=== PATIENT | male | born 1970 | race Caucasian/White ===

== ENCOUNTER 2019-01-18 23:38 | Emergency (ER) | payer OTHER ==
[~2019-01-18] VITALS: Ht 177.8 cm; Wt 95.3 kg
--- NOTE | 2019-01-18 23:49 | NUR ---
PT BIB , LOWER BACK PUNCTURE, S/P TRIP N FALL. PT AAOX4, AMBULATORY, PT ON MONITOR, VSS, NAD NOTED, DENIES PAIN/DISCOMFORT, PENDING ER PROVIDER SHAUNA
[2019-01-19] MEDS ORDERED: LIDOCAINE HCL/MPF 1% 30 ML VIAL IJ ONE (00:17)
[2019-01-19 00:30] LABS: BASOPHILS # (AUTO) 0.1 /CMM (0.0-0.2); BASOPHILS % (AUTO) 1.4 % (0.0-2.0); EOSINOPHILS % (AUTO) 2.1 % (0.0-6.0); HEMATOCRIT 38 % (39-51); HEMOGLOBIN 13.1 g/dL (13.5-17.5); LYMPHOCYTES # (AUTO) 1.9 /CMM (0.8-4.8); LYMPHOCYTES % (AUTO) 18.5 % (20.0-44.0); MEAN CORPUSCULAR HGB CONC 34 g/dl (31.0-36.0); MEAN CORPUSCULAR VOLUME 107 fL (80-96); MONOCYTES # (AUTO) 0.4 /CMM (0.1-1.30); MONOCYTES % (AUTO) 4.2 % (2.0-12.0); NEUTROPHILS # (AUTO) 7.7 /CMM (1.8-8.9); NEUTROPHILS % (AUTO) 73.8 % (43.0-81.0); PLATELET COUNT (AUTO) 265 /CMM (150-450); RED BLOOD CELL COUNT(AUTO) 3.56 MIL/uL (4.5-6.0); WHITE BLOOD COUNT (AUTO) 10.4 K/uL (4.3-11.0)
[2019-01-19] MEDS ORDERED: TDAP [DIPH/PERTUSSIS/TET] 0.5 ML VIAL IM ONE ×2 (00:30→01:08)
[2019-01-19] MEDS ORDERED: IV NS 0.9% 1,000 ML BAG IV ONE (00:30)
[2019-01-19] MEDS ORDERED: LIDOCAINE 2% 20 ML MDV TP ONE (00:30)
[2019-01-19] MEDS ORDERED: LIDOCAINE 2%-EPI 1:100,000 30 ML VIAL TP ONE (00:30)
[2019-01-19] MEDS ORDERED: CT SWABBABLE VALVE TRANS SET 1 EA INFUS.SET MC ONE (00:37)
[2019-01-19] MEDS ORDERED: IOHEXOL-300 100 ML VIAL IV ONE (00:37)
[2019-01-19] MEDS ORDERED: IV NS 0.9% 250 ML IV ONE (00:37)
[2019-01-19 00:53] LABS: CALCIUM, SERUM 8.2 mg/dL (8.5-10.1); CREATININE 0.6 mg/dL (0.6-1.3); POTASSIUM 3.7 mmol/L (3.5-5.1)
[2019-01-19 00:56] LABS: ALBUMIN 3.2 g/dL (3.4-5.0); BILIRUBIN,DIRECT 0.2 mg/dL (0.0-0.2); BILIRUBIN,TOTAL 0.4 mg/dL (0.2-1.0); TOTAL PROTEIN, SERUM 7.7 g/dL (6.4-8.2)
--- NOTE | 2019-01-19 00:58 | NUR ---
PT REFUSED CHEST XRAY. AWARE.
[2019-01-19 01:16] LABS: BASOPHILS % (MANUAL) 1 % (0.0-2.0); EOSINOPHILS % (MANUAL) 2 % (0-4); LYMPHOCYTES % (MANUAL) 18 % (16-48); MONOCYTES % (MANUAL) 5 % (0-11.0); NEUTROPHILS % (MANUAL) 74 (42-76)
--- NOTE | 2019-01-19 01:29 | NUR ---
CALLED NIC TO READ IMAGES
[2019-01-19 02:09] VITALS: BP 151/69
--- NOTE | 2019-01-19 02:09 | NUR ---
Patient discharged to home in stable condition. Written and verbal after care instructions given. Patient verbalizes understanding of instruction. IV removed. Catheter intact and site benign. Pressure and 4x4 applied to site. No bleeding noted.
== END 2019-01-19 02:10 | disposition home or self-care (01) ==
LOC: ER 23:43
DX: S31.010A Laceration without foreign body of lower back and pelvis without penetration into retroperitoneum, initial encounter (principal); R42 Dizziness and giddiness; F17.210 Nicotine dependence, cigarettes, uncomplicated; F10.10 Alcohol abuse, uncomplicated; Y90.9 Presence of alcohol in blood, level not specified; W22.8XXA Striking against or struck by other objects, initial encounter; Y93.89 Activity, other specified; Y92.89 Other specified places as the place of occurrence of the external cause; Y99.8 Other external cause status
CPT/HCPCS: 12001; 36415; 72131; 74177; 80048; 80076; 85025; 85730; 86850; 90471; 90715; 93005; 96360; 99284; J3490; J7050; Q9967

== ENCOUNTER 2022-01-12 02:55 | Inpatient (IN) | payer OTHER ==
[~2022-01-12] VITALS: Ht 177.8 cm; Wt 84.8 kg
[2022-01-12] VITALS (8 sets, daily range): BP systolic 85–116; BP diastolic 45–60
--- NOTE | 2022-01-12 03:15 | NUR ---
TO ER BED 6. [id number] FROM HOME C/O SOB AND WEAKNESS X 2 DAYS AND WORSE TONIGHT. DID NOT TAKE ANYTHING TO RELIEVE SYMPTOMS. O2 SAT NOTED AT 98 ROOM AIR . NOT IN RESPIRATORY DISTRESS. CONNECTED TO MONITOR. AWAITNG MD VILLATORO
--- NOTE | 2022-01-12 03:16 | NUR ---
RFA #20G S/L; PATENT AND INTACT. BLOOD COLLECTED AND SENT TO LAB
--- NOTE | 2022-01-12 03:20 | NUR ---
COVID ANTIGEN SWAB COLLECTED AND SENT TO LAB
--- NOTE | 2022-01-12 03:20 | NUR ---
CRYPTOGRAPHIC MACHINE OPERATOR AT PT'S BEDSIDE
[2022-01-12 03:30] LABS: BASOPHILS # (AUTO) 0.1 K/uL (0.0-0.2); BASOPHILS % (AUTO) 0.3 % (0.0-2.0); EOSINOPHILS % (AUTO) 0.3 % (0.0-6.0); HEMATOCRIT 21 % (39-51); HEMOGLOBIN 7.3 g/dL (13.5-17.5); LYMPHOCYTES # (AUTO) 1.4 K/uL (0.8-4.8); LYMPHOCYTES % (AUTO) 4.7 % (20.0-44.0); MEAN CORPUSCULAR HGB CONC 34 g/dl (31.0-36.0); MEAN CORPUSCULAR VOLUME 105 fL (80-96); MONOCYTES # (AUTO) 1.4 K/uL (0.1-1.30); NEUTROPHILS # (AUTO) 26.1 K/uL (1.8-8.9); NEUTROPHILS % (AUTO) 89.7 % (43.0-81.0); PLATELET COUNT (AUTO) 291 K/uL (150-450); RED BLOOD CELL COUNT(AUTO) 2.04 MIL/uL (4.5-6.0)
[2022-01-12 03:51] LABS: ALANINE AMINOTRANSFERASE < 6 U/L (12-78); ALKALINE PHOSPHATASE 150 U/L (46-116); ASPARTATE AMINOTRANSFERASE 17 U/L (15-37); BILIRUBIN,DIRECT 1.3 mg/dL (0.0-0.2); BILIRUBIN,TOTAL 1.7 mg/dL (0.2-1.0); CALCIUM, SERUM 8.2 mg/dL (8.5-10.1); CARBON DIOXIDE 15 mmol/L (21-32); CREATININE 3.5 mg/dL (0.6-1.3); GLUCOSE 89 mg/dL (74-106); POTASSIUM 3.2 mmol/L (3.5-5.1); TOTAL PROTEIN, SERUM 6.8 g/dL (6.4-8.2); UREA NITROGEN, BLOOD 44 mg/dL (7-18)
[2022-01-12 03:53] LABS: CHLORIDE 75 mmol/L (98-107); SODIUM SERUM 111 mmol/L (136-145)
--- NOTE | 2022-01-12 03:54 | NUR ---
CRITICAL LABS SODIUM 111, CHLORIDE 75, LACTIC ACID 9.4, MADE AWARE
[2022-01-12] MEDS ORDERED: AZITHROMYCIN 500 MG in IV D5W 250 ML IV ONE (04:30)
[2022-01-12] MEDS ORDERED: IV NS 0.9% 1,000 ML BAG IV ONE (04:30)
[2022-01-12] MEDS ORDERED: CEFTRIAXONE 1GM BAG (ER ONLY) 1 GM/50 ML PIGGYBACK IV ONE (04:30)
[2022-01-12] MEDS ORDERED: ALBUMIN 25% 12.5 GM/50 ML BOTTLE IV ONE (04:30)
[2022-01-12] MEDS ORDERED: CEFTRIAXONE 1GM BAG (ER ONLY) 50 ML IV ONE (04:34)
[2022-01-12] MEDS ORDERED: ALBUMIN 25% 50 ML IV ONE (04:35)
[2022-01-12] MEDS ORDERED: AZITHROMYCIN 500 MG VIAL ONE (04:35)
--- NOTE | 2022-01-12 04:57 | NUR ---
COVID PCR AND BLOOD COLLECTED AND SENT TO LAB
--- NOTE | 2022-01-12 05:19 | NUR ---
URINE COLLECTED AND SENT TO LAB
[2022-01-12 05:48] LABS: BILIRUBIN,URINE SMALL (NEGATIVE); COLOR,URINE DARK YELLOW (YELLOW); LEUKOCYTE ESTERASE ,URINE NEGATIVE (NEGATIVE); NITRITE, URINE NEGATIVE (NEGATIVE); PROTEIN,URINE NEGATIVE (NEGATIVE); UGLUCOSE NEGATIVE (NEGATIVE); UROBILINOGEN,URINE 0.2 EU/dL (0.2)
[2022-01-12] MEDS ORDERED: ONDANSETRON HCL/PF 4 MG/2 ML VIAL IVP PRN (06:30)
[2022-01-12] MEDS ORDERED: IV NS 0.9% 1,000 ML IV PRN (06:30)
--- NOTE | 2022-01-12 07:15 | NUR ---
Recived pt from [facility] RN AWAKE AND ALERT coughing congestion and tachypnea RR 32b/min HOB 45@ ALL TIME wating for telmetery bed
[2022-01-12 07:26] LABS: BAND % (MANUAL) 9 % (0.0-5.0); LYMPHOCYTES % (MANUAL) 3 % (16-48); MONOCYTES % (MANUAL) 6 % (0-11.0); NEUTROPHILS % (MANUAL) 82 (42-76)
--- NOTE | 2022-01-12 08:06 | NUR ---
AMBLATE TO BR HAD BM X1 AFEBRILE
--- NOTE | 2022-01-12 08:29 | NUR ---
ECCHO CARDOGRM AT BED SIDE
--- NOTE | 2022-01-12 09:03 | NUR ---
notefy DR. HUFF plan to called [facility] pcp
[2022-01-12 09:49] LABS: ABG BASE EXCESS -6.3 mmol/L; ABG PCO2 25.2 mmHg (35.0-45.0); ABG PH 7.445 (7.350-7.450); ABG PO2 55.5 mmHg (75.0-100.0); COHb 0.3 % (0.5-1.5); MetHb 0.3 % (0.0-1.5); O2Hb 87.6 % (94.0-97.0); SITE, ABG Right Radial; VENT MODE, BG ROO AIR
--- NOTE | 2022-01-12 10:00 | NUR ---
[facility] unable to reash with
--- NOTE | 2022-01-12 10:16 | NUR ---
room 110
[2022-01-12] MEDS: FOLIC ACID 1 MG TABLET PO SCH (10:30)
--- NOTE | 2022-01-12 10:31 | NUR ---
REPORT GIVEN TO ARVIN KING OF TELE UNIT
--- NOTE | 2022-01-12 10:34 | NUR ---
sitll with sob with exertion o2 sat 99% with fio2 2lnc to room 110
--- NOTE | 2022-01-12 10:45 | NUR ---
PATIENT TRANSFERRED TO BED 110 IN STABLE CONDITION
[2022-01-12] MEDS: VANCOMYCIN HCL 0.75 GM in IV D5W 250 ML IV SCH (11:20)
--- NOTE | 2022-01-12 11:30 | NUR ---
RN NOTE PT RECD FROM ER. REPORT TAKEN FROM NURSE SALOMÓN. PT IS A/0 X 3-4. PT SOB AND IN DISTRESS ON 6L VIA NC UPON RECEIPT OF PT O2 SAT OF 90%. . O2 INCREASED TO 12L VIA REBREATHER MASK AND PT TOLERATING WELL WITH 02SAT OF 98%. PT HAS 20G R WRIST IV AND 22G L FA INTACT AND PATENT. PT BREATHING EVEN AND LABORED UPON ASSESSMENT. PT HAS CRITICAL LAB VALUES OF 111(NA) 3.2(K+) PER ER NURSE. ABG CRITICAL LABS OF 7.7(HGB) 25.2(CO2) AND 55.5(O2) PER ER NURSE. MD NOTIFIED. ALL SAFETY MEASURES NOTED AND ACCOUNTED FOR. BED IN LOW POSITION. WHEELS LOCKED IN PLACE. CALL LIGHT WITHIN REACH. WILL CONTINUE TO MONITOR.
[2022-01-12] MEDS ORDERED: IV NS 0.9% 1,000 ML IV ONE ×3 (12:00→17:30)
[2022-01-12] MEDS: HYDROCODONE/APAP 5/325MG TABLET PO PRN (13:09)
[2022-01-12] MEDS: LEVOFLOXACIN 750 MG /D5W 150ML 150 ML IV SCH (13:44)
[2022-01-12] MEDS: CEFEPIME 2 GM in IV D5W 100 ML IV SCH (13:44)
[2022-01-12 14:49] LABS: CALCIUM, SERUM 7.6 mg/dL (8.5-10.1); CREATININE 3.2 mg/dL (0.6-1.3)
--- NOTE | 2022-01-12 15:00 | NUR ---
RN NOTE PT REVEIVED LRBC BLOOD TRANSFUSION 500 ML OVER 3 HOURS. PT TOLERATED WELL WITH NO S/SX OF TRANSFUSION REACTION AND STABLE V/S UPON FINISHING TRANSFUSION. V/S WERE 107/52 80HR 20RR AND 97.5 TEMP. WILL CONTINUE TO MONITOR.
--- NOTE | 2022-01-12 15:18 | NUR ---
NA 114 AND K LEVER 3.0 notified to stated that consult to Sr Perez [phone] informed to MD he will see him today
[2022-01-12] MEDS: PANTOPRAZOLE 40 MG TABLET.DR PO SCH (16:00)
[2022-01-12] MEDS: ENOXAPARIN SODIUM 30 MG/0.3 ML DISP.SYRIN SQ SCH (16:02)
[2022-01-12 17:09] LABS: ABG BASE EXCESS -7.2 mmol/L; ABG OXYGEN SATURATION 96.8 % (92.0-98.5); ABG PCO2 30.1 mmHg (35.0-45.0); ABG PH 7.373 (7.350-7.450); ABG PO2 90.2 mmHg (75.0-100.0); AaDO2 160.4 mmHg; MetHb 0.1 % (0.0-1.5); O2Hb 95.7 % (94.0-97.0); SITE, ABG Right Radial; VENT MODE, BG 6L NC
[2022-01-12] MEDS: IV NS 0.9% 1,000 ML IV PRN ×2 (17:10→22:30)
--- NOTE | 2022-01-12 18:01 | NUR ---
RN NOTE PT BP 85/55. 1L NS BOLUS ORDERED AND ADM PER MD. BOLUS FINISHED AND BP IS CURRENTLY 95/57. TRANSFER TO ICU PER MD IF SYSTOLIC <80. WILL CONTINUE TO MONITOR.
--- NOTE | 2022-01-12 18:36 | NUR ---
RN CLOSING NOTE PT REMAINS STABLE AT THIS TIME. PT IS A/0 X 3-4. PT PT BREATHING IS EVEN AND UNLABORED ON 6L NC AND TOLERATING WELL WITH 02SAT OF 99%. PT HAS 20G R WRIST IV AND 22G L FA INTACT AND PATENT RUNNING NS AT 125 ML/HR. PT RECEIVED 2L NS VIA BOLUS PER MD ORDER FOR LOW BP. BP CURRENTLY AT 94/42. ALL DUE MEDS ADM ORDERED BY MD. ALL NEEDS MET. ALL SAFETY MEASURES NOTED AND ACCOUNTED FOR. BED IN LOW POSITION. WHEELS LOCKED IN PLACE. CALL LIGHT WITHIN REACH. WILL ENDORSE TO LENS ASSISTANT RN.
--- NOTE | 2022-01-12 19:30 | NUR ---
RN NOTES RECEIVED PT FOR CONTINUITY OF CARE. PATIENT A/OX4 IN NO S/SX OF ACUTE DISTRESS AT THIS TIME; CURRENTLY ON 6L OF 02 VIA NC; WITH 02 SAT 100% AT THIS TIME. IV SITE @ L ARM#20 AND R WRIST #20 ; PATENT, INTACT AND FLUSHING WELL; NO S/S OF INFECTION OR INFILTRATION. PT ALSO HAS ALL SECURED AND INTACT NO SIGNS OF INFECTION. WITH IV FLUID RUNNING ORDERED. WILL ENSURE SAFETY MEASURES WITHIN THE SHIFT. PATIENT BED ALARM IS ON. HEAD OF BED ELEVATED. BED IS LOCKED, IN LOWEST POSITION AND SIDE RAILS UP. CALL LIGHT WITHIN REACH OF THE PATIENT. APPLICABLE ISOLATION PRECAUTIONS IN PLACE. WILL CONTINUE TO MONITOR AND REASSESS FOR ANY CHANGES AND WILL CARRY OUT ANY ONGOING AND ACTIVE MD ORDER.
[2022-01-12] MEDS: ACETAMINOPHEN 325 MG TABLET PO PRN (20:05)
[2022-01-12] MEDS: MORPHINE SULFATE INJ 2 MG/ML DISP.SYRIN IV PRN (22:43)
[2022-01-13] VITALS: BP 100/56
[2022-01-13 04:00] VITALS: BP 105/53
[2022-01-13] MEDS: ACETAMINOPHEN 325 MG TABLET PO PRN ×3 (05:36→22:46)
[2022-01-13] MEDS: IV NS 0.9% 1,000 ML IV PRN (06:30)
--- NOTE | 2022-01-13 06:40 | NUR ---
RN CLOSING NOTE: PATIENT REMAINS IN ROOM IN NO SIGNS OF RESPIRATORY DISTRESS, PATIENT STILL ON 4L OF 02 VIA NC;TOLERATING WELL SATURATING @ >95% SP02. SAFETY MEASURES IMPLEMENTED, BED IN LOWEST POSITION, LOCKED, SIDE RAILS UP, CALL LIGHT WITHIN REACH. ALL NEEDS AND ORDERS ADDRESSED DURING THE SHIFT. IV ACCESS MAINTAINED INTACT, SECURED AND FLUSHING WELL. ALL DUE MEDS GIVEN ORDERED & SCHEDULED ; PATIENT TOLERATED WELL. PATIENT KEPT CLEAN AND COMFORTABLE WITHIN THE SHIFT. PATIENT ENDORSED TO INCOMING SHIFT RN WITH STABLE VITAL SIGN AND FOR CONTINUITY OF CARE. Addendum: 01/13/22 at 0659 by ZAYRA JURADO RN MEÑO CRITICAL LAB RECEIVED : NA LEVEL -117; WILL ENDORSE TO AM SHIFT FOR FOLLOW THROUGH WITH MD. CUELLO RN MADE AWARE.
[2022-01-13 06:44] LABS: CALCIUM, SERUM 7.5 mg/dL (8.5-10.1); CREATININE 1.9 mg/dL (0.6-1.3); PHOSPHORUS 4.1 mg/dL (2.5-4.9); POTASSIUM 3.4 mmol/L (3.5-5.1)
[2022-01-13 06:49] LABS: BASOPHILS # (AUTO) 0.1 K/uL (0.0-0.2); BASOPHILS % (AUTO) 0.3 % (0.0-2.0); HEMATOCRIT 24 % (39-51); HEMOGLOBIN 8.2 g/dL (13.5-17.5); LYMPHOCYTES # (AUTO) 0.8 K/uL (0.8-4.8); LYMPHOCYTES % (AUTO) 4.3 % (20.0-44.0); MAGNESIUM 1.2 mg/dL (1.8-2.4); MEAN CORPUSCULAR HGB CONC 34 g/dl (31.0-36.0); MEAN CORPUSCULAR VOLUME 103 fL (80-96); MONOCYTES # (AUTO) 0.8 K/uL (0.1-1.30); MONOCYTES % (AUTO) 4.4 % (2.0-12.0); NEUTROPHILS # (AUTO) 16.5 K/uL (1.8-8.9); PLATELET COUNT (AUTO) 187 K/uL (150-450); RED BLOOD CELL COUNT(AUTO) 2.33 MIL/uL (4.5-6.0); WHITE BLOOD COUNT (AUTO) 18.1 K/uL (4.3-11.0)
--- NOTE | 2022-01-13 06:56 | NUR ---
RN NOTES CRITICAL LAB RECEIVED : NA LEVEL -117; WILL ENDORSE TO AM SHIFT FOR FOLLOW THROUGH WITH MD. CUSTOMER EXPERIENCE ANALYST MADE AWARE.
--- NOTE | 2022-01-13 07:30 | NUR ---
YARN INSPECTOR OPENING NOTES RECEIVED PATIENT AWAKE ON BED AND A/O X4. ON O2 AT 4LPM VIA NASAL CANNULA TOLERATING WELL. NOT IN DISTRESS. WITH COMPLAINTS OF PAIN ON THE LEFT SHOULDER AT THE SCALE OF 9/10 AND ASKED FOR MORPHINE FOR PAIN MEDICATION. CHECKED PATIENT'S BP BUT BP WAS 98/53. MORPHINE PAIN MEDICATION CANNOT BE GIVEN. WILL RECHECK BP. WITH IV ACCESS AT LEFT ARM G20 SALINE LOCKED, PATENT AND INTACT AND AT RIGHT WRIST G20 WITH NS AT 125ML/HR INFUSING WELL. ON TELE MONITOR CURRENTLY READING SINUS RHYTHM AT 76BPM. SAFETY MEASURES IN PLACED. CALL LIGHT WITHIN REACH. BED ON LOWEST LOCKED POSITION, SIDE RAILS UP X2. WILL CONTINUE TO MONITOR.
[2022-01-13 08:00] VITALS: BP 111/44
[2022-01-13] MEDS ORDERED: MAGNESIUM OXIDE 400 MG TABLET PO ONE (08:00)
[2022-01-13] MEDS ORDERED: POTASSIUM CHLORIDE 10 MEQ TABLET.SA PO ONE (08:00)
[2022-01-13] MEDS: PANTOPRAZOLE 40 MG TABLET.DR PO SCH (08:52)
[2022-01-13] MEDS: Potassium Chloride 20 MEQ in IV NS 0.9% 1,000 ML IV SCH ×2 (08:52→16:19)
[2022-01-13] MEDS: CEFEPIME 2 GM in IV D5W 100 ML IV SCH (08:52)
[2022-01-13] MEDS: FOLIC ACID 1 MG TABLET PO SCH (08:52)
[2022-01-13] MEDS: ENOXAPARIN SODIUM 30 MG/0.3 ML DISP.SYRIN SQ SCH (08:53)
[2022-01-13] MEDS ORDERED: FLUT12AE5 INH (09:56)
[2022-01-13] MEDS ORDERED: PANT40TA49 PO (09:56)
[2022-01-13] MEDS ORDERED: ALBU18HF2 IH (09:56)
[2022-01-13] MEDS ORDERED: SPIR25TA6 PO (09:56)
[2022-01-13] MEDS ORDERED: PROP10TA68 PO (09:56)
[2022-01-13] MEDS: VANCOMYCIN HCL 0.75 GM in IV D5W 250 ML IV SCH ×2 (10:48→22:00)
[2022-01-13 11:25] LABS: IRON, SERUM 36 ug/dl (50-175); TOTAL IRON BINDING CAPACITY 114 ug/dl (250-450)
[2022-01-13 11:30] LABS: FERRITIN 576 ng/mL (8-388)
[2022-01-13 12:49] VITALS: BP 100/40
[2022-01-13 14:19] LABS: POTASSIUM 2.7 mmol/L (3.5-5.1)
--- NOTE | 2022-01-13 15:00 | NUR ---
RN NOTE REPORTED TO DR. LILLY FOR POTASSIUM RESULT 2.7 AND ORDERED KCL 20MEQ PO FOR 3 DOSES.
[2022-01-13 16:00] VITALS: BP 105/54
[2022-01-13] MEDS: POTASSIUM CHLORIDE 20 MEQ TAB.PRT.SR PO SCH ×4 (17:40→21:58)
--- NOTE | 2022-01-13 18:42 | NUR ---
TABLE AND DESK FINISHER CLOSING NOTES PATIENT RESTING ON BED AND A/O X4. ON O2 AT 4LPM VIA NASAL CANNULA TOLERATING WELL. NOT IN DISTRESS. WITH COMPLAINTS OF PAIN ON THE LEFT SHOULDER. COMFORT MEASURES PROVIDED. WITH IV ACCESS AT LEFT ARM G20 SALINE LOCKED, PATENT AND INTACT AND AT RIGHT WRIST G20 WITH NS +KCL 20MEQ AT 125ML/HR INFUSING WELL. ON TELE MONITOR CURRENTLY READING SINUS RHYTHM AT 73BPM. DUE MEDS GIVEN. SAFETY MEASURES IN PLACED. CALL LIGHT WITHIN REACH. BED ON LOWEST LOCKED POSITION, SIDE RAILS UP X2. WILL ENDORSE TO NEXT SHIFT FOR VALERIA.
--- NOTE | 2022-01-13 19:40 | NUR ---
RN OPENING NOTES RECEIVED PATIENT IN BED, AWAKE, A/O X4 AND VERBALLY RESPONSIVE. ON O2 AT 4LPM VIA N/C AND TOLERATING WELL. BREATHING EVEN AND UNLABORED. IV ACCESS ON LEFT ARM #20G AND RIGHT WRIST #20G INTACT AND PATENT. NO S/S OF INFILTRATIONS. RUNNING NS AT 125CC/HR. TYLENOL GIVEN DURING LAST SHIFT FOR PAIN BUT STILL DIDN'T RESOLVE. MORPHINE WAS NOT GIVEN DUE TO LOW BP. ALL SAFETY MEASURES IN PLACED. PLACE CALL LIGHT WITHIN REACH. BED ON LOWEST POSITION AND LOCKED. SIDE RAILS UP X2. WILL CONTINUE TO MONITOR.
[2022-01-13 20:00] VITALS: BP 106/44
--- NOTE | 2022-01-13 22:58 | NUR ---
RN NOTES: PT C/O BOTH KNEE PAIN, 3/10 PAIN SCALE. TYLENOL 650 MG 2 TABS GIVEN AND PT TOLERATED WELL. WILL CONTINUE TO MONITOR
[2022-01-14] VITALS (7 sets, daily range): BP systolic 91–123; BP diastolic 49–75
[2022-01-14] MEDS: Potassium Chloride 20 MEQ in IV NS 0.9% 1,000 ML IV SCH ×3 (00:35→21:49)
[2022-01-14] MEDS: ACETAMINOPHEN 325 MG TABLET PO PRN ×2 (04:52→16:30)
--- NOTE | 2022-01-14 04:54 | NUR ---
RN NOTES: PT STILL C/O BOTH KNEE PAIN, 3/10 PAIN SCALE. TYLENOL 650 MG 2 TABS GIVEN AND PT TOLERATED WELL. WILL CONTINUE TO MONITOR
[2022-01-14 06:27] LABS: BASOPHILS % (AUTO) 0.1 % (0.0-2.0); EOSINOPHILS % (AUTO) 0.2 % (0.0-6.0); HEMATOCRIT 21 % (39-51); LYMPHOCYTES # (AUTO) 1.5 K/uL (0.8-4.8); LYMPHOCYTES % (AUTO) 8.5 % (20.0-44.0); MEAN CORPUSCULAR HGB CONC 34 g/dl (31.0-36.0); MEAN CORPUSCULAR VOLUME 102 fL (80-96); MONOCYTES % (AUTO) 5.9 % (2.0-12.0); NEUTROPHILS # (AUTO) 14.9 K/uL (1.8-8.9); NEUTROPHILS % (AUTO) 85.3 % (43.0-81.0); PLATELET COUNT (AUTO) 176 K/uL (150-450); RED BLOOD CELL COUNT(AUTO) 2.01 MIL/uL (4.5-6.0); WHITE BLOOD COUNT (AUTO) 17.4 K/uL (4.3-11.0)
--- NOTE | 2022-01-14 06:47 | NUR ---
RN CLOSING NOTES PATIENT IN BED, AWAKE, A/O X4 AND VERBALLY RESPONSIVE. ON O2 AT 4LPM VIA N/C, O2 SAT 99% AND TOLERATING WELL. BREATHING EVEN AND UNLABORED. IV ACCESS ON LEFT ARM #20G AND RIGHT WRIST #20G INTACT AND PATENT. NO S/S OF INFILTRATIONS. RUNNING NS WITH POTASSIUM AT 125CC/HR. PT STILL C/O PAIN BUT TYLENOL GIVEN AT 0452. UNABLE TO GIVEN MORPHINE DUE TO LOW BP. ALL SAFETY MEASURES IN PLACED. PLACE CALL LIGHT WITHIN REACH. BED ON LOWEST POSITION AND LOCKED. SIDE RAILS UP X2. WILL ENDORSE TO MORNING SHIFT NURSE.
[2022-01-14 07:10] LABS: CALCIUM, SERUM 8.1 mg/dL (8.5-10.1); POTASSIUM 4.3 mmol/L (3.5-5.1)
[2022-01-14 07:19] LABS: MAGNESIUM 1.2 mg/dL (1.8-2.4)
--- NOTE | 2022-01-14 07:30 | NUR ---
TD RN AM NOTES PATIENT AWAKE IN BED AND A/O X4. ON O2 AT 4LPM VIA NASAL CANNULA O2 SAT AT 100%. NOT IN DISTRESS. SLIGHT SOB ON MOVEMENT. DENEIS CHEST PAIN/DISCOMFORT, SR HR 61 ON MONITOR. LEFT ARM 20G AND RT WRIST 20G WITH NS +MEQ KCL RUNNING AT 125 ML/HR. BOTH SITES CLEAR. CARDIAC DIET. SEE NURSING FLOWSHEET FOR SKIN ISSUES. INDEPENDENT OF BED MOBILITY. IN MEDICATION CANNOT BE GIVEN. WILL RECHECK BP. WITH IV ACCESS AT LEFT ARM G20 SALINE LOCKED, PATENT AND POC DISCUSSED, VERBALIZED UNDERSTANDING. SAFETY MEASURES IN PLACED. CALL LIGHT WITHIN REACH. BED ON LOWEST LOCKED POSITION, SIDE RAILS UP X2. WILL CONTINUE TO MONITOR.
[2022-01-14] MEDS: CEFEPIME 2 GM in IV D5W 100 ML IV SCH (08:07)
[2022-01-14] MEDS: PANTOPRAZOLE 40 MG TABLET.DR PO SCH (08:07)
[2022-01-14] MEDS: FOLIC ACID 1 MG TABLET PO SCH (08:10)
[2022-01-14] MEDS: ENOXAPARIN SODIUM 30 MG/0.3 ML DISP.SYRIN SQ SCH (08:20)
[2022-01-14] MEDS: VANCOMYCIN HCL 0.75 GM in IV D5W 250 ML IV SCH (09:21)
[2022-01-14] MEDS: Magnesium 1GM/D5W 100ML PREMIX 100 ML IV SCH ×2 (09:22→10:26)
--- NOTE | 2022-01-14 09:30 | NUR ---
RN NOTES DUE MEDS GIVEN
--- NOTE | 2022-01-14 09:40 | NUR ---
RN NOTES PER DR. SINGH, PATIENT FOR CT CHEST WO AND POSSIBLE CT GUIDED PIGTAIL PLACEMENT - LUNG POSS HYDROPNEUMOTHORAX. CONSENT SIGNED. DR. LILLY NOTIFIED. ALSO AWARE OF HEMOGLOBIN LEVEL OF 7.0, NO NEW ORDERS GIVEN. MONITOR FOR NOW.
[2022-01-14 09:50] LABS: BAND % (MANUAL) 20 % (0.0-5.0); MONOCYTES % (MANUAL) 3 % (0-11.0); NEUTROPHILS % (MANUAL) 71 (42-76)
--- NOTE | 2022-01-14 10:35 | NUR ---
WOUND CARE CONSULT: PT PRESENTS WITH RT ARM SKIN TEAR AND OPEN SKIN TO GLUTEAL CREASE/INNER BUTTOCKS AREA, PRESENT ON ADMISSION. RECOMMENDATIONS MADE FOR SKIN PROTECTION. DISCUSSED WITH NURSING STAFF. MD IN AGREEMENT WITH PLAN OF CARE.
[2022-01-14] MEDS ORDERED: Z GUARD REMEDY 4 OZ OINT TP PRN (11:00)
[2022-01-14] MEDS: Z GUARD REMEDY 4 OZ OINT TP SCH (11:45)
--- NOTE | 2022-01-14 11:45 | NUR ---
RN NOTES PATIENT PICKED UP FOR LEFT SIDED PIGTAIL CATHETER PLACEMENT.
[2022-01-14] MEDS: LEVOFLOXACIN 750 MG /D5W 150ML 150 ML IV SCH (12:32)
[2022-01-14] MEDS ORDERED: FENTANYL PF 250MCG/5ML AMPUL IV PRN (14:30)
[2022-01-14] MEDS ORDERED: NALOXONE PREFILLED SYRINGE 2 MG/2 ML SYRINGE IV PRN (14:30)
[2022-01-14] MEDS ORDERED: FLUMAZENIL 0.5 MG VIAL IV PRN (14:30)
[2022-01-14] MEDS ORDERED: MIDAZOLAM HCL 2 MG/2ML VIAL IV PRN (14:30)
[2022-01-14] MEDS ORDERED: LIDOCAINE 1% INJ 50 ML MDV IJ ONE (14:32)
--- NOTE | 2022-01-14 14:47 | NUR ---
sp ct guided pigtail placement to left lung done by Dr Montelongo. pt hemal procedure well. rt's Kamron T & Aba T. on standby. no narcotic/ sedation given. report given to conner crockett 1435 bp 98/56 pr 88 rr 18 O2 sat 100% w/ O2 @ 3lpm/nc. 1440 96/56 89 18 98% w/ O2 1455 98/65 91 18 100 w/ O2 1455 transfer to floor on stable conditon via stretcher.
--- NOTE | 2022-01-14 14:57 | NUR ---
FERNANDO NOTES PATIENT BACK FROM CT SCAN GUIDED CHEST TUBE PLACEMENT COLLECTED SPECIMEN FOR BODY FLUID ANALYSIS BY FARZANA US/CT PATIENT ATTACTHED TO WALL SUCTION 20CM. TOTAL OUTPUT AT THIS TIME IS 500ML Addendum: 01/14/22 at 1539 by REZA TERAN RN ADDENDUM: VS TEMP 98 DE 89 RESP 25 O2 SAT 100% BP 123/63 Addendum: 01/14/22 at 1555 by REZA TERAN RN PATIENT ATTACHED TO WALL SUCTION, COLLECTION CHAMBER AT -20CM H20 TOTAL OUTPUT AT THIS TIME IS 500ML
[2022-01-14] MEDS ORDERED: K PHOS NEUTRAL 250 MG TABLET PO ONE (15:30)
--- NOTE | 2022-01-14 18:51 | NUR ---
TD RN CLOSING NOTES PATIENT AWAKE IN BED AND A/O X4. RESTING. ON O2 AT 4LPM VIA NASAL CANNULA O2 SAT AT 100%. NOT IN DISTRESS. SLIGHT SOB ON MOVEMENT. DENIES CHEST PAIN/DISCOMFORT, SR HR 89 ON MONITOR. LEFT ARM 20G AND RT WRIST 20G WITH NS +MEQ KCL RUNNING AT 70 ML/HR. BOTH SITES CLEAR. CARDIAC DIET. INDEPENDENT OF BED MOBILITY. SAFETY MEASURES IN PLACED. CALL LIGHT WITHIN REACH. BED ON LOWEST LOCKED POSITION, SIDE RAILS UP X2. WILL CONTINUE TO MONITOR. PATIENT S/P CHEST TUBE PIGTAIL PLACEMENT BY DR. SAINI. ATTACHED TO WALL SUCTION AT 75 MMHG AND TO CHEST TUBE CHAMBER -20 CM H2O TOTAL OUTPUT AT 1800 IS 1020 ML
[2022-01-14] MEDS: MORPHINE SULFATE INJ 2 MG/ML DISP.SYRIN IV PRN (21:05)
--- NOTE | 2022-01-14 21:53 | NUR ---
NOTED PATIENT WITH SOB, AND VERY CONGESTED WITH CRACKLES UPON AUSCULTATION, O2 SAT LEVEL 98-100 AT 4LPM VIA NC, INFORMED DR CANO THAT PATIENT DOES NOT HAVE ANY BREATHING TX OR ANY LASIX ADMINISTRATION, PER DR CANO TO DO ABGS AND CXR STAT, ALL ORDERS NOTED AND CARRIED OUT, WILL CONT TO MONITOR CLOSELY.
[2022-01-14 22:33] LABS: ABG OXYGEN SATURATION 96.6 % (92.0-98.5); ABG PCO2 23.1 mmHg (35.0-45.0); ABG PH 7.435 (7.350-7.450); ABG PO2 82.9 mmHg (75.0-100.0); COHb 0.5 % (0.5-1.5); MetHb 0.2 % (0.0-1.5); O2Hb 95.9 % (94.0-97.0); SITE, ABG Right Brachial; VENT MODE, BG 4L NC
--- NOTE | 2022-01-14 22:50 | NUR ---
RELAYED ABGS RESULTS TO DR CANO AND PER HIM TO START BREATHING TX AND LASIX 40MH IVP ONCE, ORDERS NOTED AND CARRIED OUT.
[2022-01-14] MEDS ORDERED: FUROSEMIDE 20 MG/2 ML VIAL IV ONE (23:00)
[2022-01-14] MEDS: ALBUTEROL FS 2.5 MG/0.5 ML VIAL.NEB NEB PRN (23:01)
[2022-01-14] MEDS: IPRATROPIUM NEB FS 0.5 MG/2.5 ML AMPUL.NEB NEB PRN (23:01)
--- NOTE | 2022-01-14 23:51 | NUR ---
RELAYED RESULTS FOR CXR TO DR CANO, NO NEW ORDERS AT THIS TIME.
[2022-01-15] VITALS: BP 111/75
[2022-01-15 04:00] VITALS: BP 106/65
[2022-01-15] MEDS ORDERED: VANCOMYCIN HCL 0.75 GM in IV D5W 250 ML IV SCH (04:00)
[2022-01-15 06:44] LABS: BASOPHILS % (AUTO) 0.1 % (0.0-2.0); EOSINOPHILS % (AUTO) 0.2 % (0.0-6.0); HEMATOCRIT 22 % (39-51); HEMOGLOBIN 7.3 g/dL (13.5-17.5); LYMPHOCYTES # (AUTO) 1.4 K/uL (0.8-4.8); LYMPHOCYTES % (AUTO) 9.2 % (20.0-44.0); MEAN CORPUSCULAR HGB CONC 34 g/dl (31.0-36.0); MEAN CORPUSCULAR VOLUME 103 fL (80-96); MONOCYTES # (AUTO) 0.9 K/uL (0.1-1.30); MONOCYTES % (AUTO) 6.2 % (2.0-12.0); NEUTROPHILS # (AUTO) 12.4 K/uL (1.8-8.9); NEUTROPHILS % (AUTO) 84.3 % (43.0-81.0); PLATELET COUNT (AUTO) 154 K/uL (150-450); WHITE BLOOD COUNT (AUTO) 14.8 K/uL (4.3-11.0)
--- NOTE | 2022-01-15 07:00 | NUR ---
RN CLOSING NOTES PATIENT ASLEEP AROUSES TO VERBAL STIMULI, A/O X4, ON O2 AT 4LPM VIA NASAL CANNULA O2 SAT AT 100%, NO SOB/ACUTE DISTRESS NOTED AT THIS TIME, PATIENT WITH ADEQUATE HOURS OF SLEEP AFTER LASIX AND BREATHING TX LAST NIGHT, SR HR 90-TO LOW 100S TO DURING THE NIGHT, NS +MEQ KCL RUNNING AT 70 ML/HR, S/P PIG TAIL INSERTION, CONNECTED TO SUCTION WITH 100ML DRAINAGE DURING THE NIGHT, SAFETY MEASURES IN PLACED, CALL LIGHT WITHIN REACH, BED ON LOWEST LOCKED POSITION, SIDE RAILS UP X2, WILL CONTINUE TO MONITOR CLOSELY.
[2022-01-15 07:09] LABS: CREATININE 0.9 mg/dL (0.6-1.3); MAGNESIUM 1.5 mg/dL (1.8-2.4); PHOSPHORUS 2.5 mg/dL (2.5-4.9)
--- NOTE | 2022-01-15 07:53 | NUR ---
RN OPENING NOTE PATIENT RECEIVED IN BED, RESTING, A&OX4. PATIENT ON 4L O2 NC WITH NO SIGNS OF LABORED BREATHING AT THIS TIME. LEFT ARM 20G AND RIGHT WRIST 20G IN PLACE RUNNING KCL AT 70CC/HR. PIGTAIL IN PLACE ON LEFT SIDE, DRAINED 100CC OVERNIGHT, TOTAL OF 1100CC IN [employer] CHAMBER. NO SIGNS OF ACUTE DISTRESS NOTED. BED LOCKED AND IN LOWEST POSITION, CALL LIGHT WITHIN REACH, 2 SIDE RAILS UP. WILL CONTINUE TO MONITOR.
[2022-01-15 08:00] VITALS: BP 104/62
[2022-01-15] MEDS: PANTOPRAZOLE 40 MG TABLET.DR PO SCH ×2 (08:36→16:45)
[2022-01-15] MEDS: CEFEPIME 2 GM in IV D5W 100 ML IV SCH ×3 (08:36→23:10)
[2022-01-15] MEDS: FOLIC ACID 1 MG TABLET PO SCH (08:36)
[2022-01-15] MEDS: Z GUARD REMEDY 4 OZ OINT TP SCH (08:37)
[2022-01-15] MEDS: ACETAMINOPHEN 325 MG TABLET PO PRN ×3 (08:55→23:09)
[2022-01-15] MEDS: ENOXAPARIN SODIUM 30 MG/0.3 ML DISP.SYRIN SQ SCH (08:56)
--- NOTE | 2022-01-15 08:58 | NUR ---
RN NOTE PER YARI PENN TO GIVE LOVENOX THIS AM.
[2022-01-15] MEDS ORDERED: ALBUTEROL SULFATE 8 GM HFA.AER.AD IH PRN (09:30)
[2022-01-15] MEDS ORDERED: MAGNESIUM OXIDE 400 MG TABLET PO ONE (10:00)
--- NOTE | 2022-01-15 11:30 | NUR ---
FERNANDO NOTE FAUSTINA PARADA AT BEDSIDE TO SEE GTUBE WOUND WITH NECROTIC TISSUE. RECOMMENDS GI CONSULT. Addendum: 01/15/22 at 1321 by SCAR HUTCHISON RN WRONG PATIENT
[2022-01-15 12:00] VITALS: BP 95/67
[2022-01-15] MEDS: LEVOFLOXACIN 750 MG /D5W 150ML 750 MG in PREMIX 1 EA IV SCH (12:43)
[2022-01-15] MEDS: Potassium Chloride 20 MEQ in IV NS 0.9% 1,000 ML IV SCH (12:44)
[2022-01-15 16:00] VITALS: BP 118/70
[2022-01-15] MEDS: BUDESONIDE RESPULE INH 0.5 MG/2 ML AMPUL.NEB NEB SCH (16:11)
[2022-01-15] MEDS: PROPRANOLOL HCL 10 MG TABLET PO SCH (16:45)
[2022-01-15] MEDS: SPIRONOLACTONE 25 MG TABLET PO SCH (16:45)
[2022-01-15] MEDS ORDERED: FLUTICASONE 110MCG 1 EA INHALER IH SCH (17:00)
--- NOTE | 2022-01-15 18:35 | NUR ---
RN CLOSING NOTE PATIENT REMAINS IN BED, AWAKE A&OX4. PATIENT ON 4L O2 NC WITH NO SIGNS OF LABORED BREATHING AT THIS TIME. LEFT ARM 20G AND RIGHT WRIST 20G IN PLACE RUNNING KCL AT 70CC/HR. PIGTAIL IN PLACE ON LEFT SIDE, DRAINED 150CC THROUGHOUT DAY SHIFT. TOTAL OF 1250CC IN [employer] CHAMBER. NO SIGNS OF ACUTE DISTRESS NOTED. BED LOCKED AND IN LOWEST POSITION, CALL LIGHT WITHIN REACH, 2 SIDE RAILS UP. ALL NEEDS ATTENDED DURING SHIFT. WILL ENDORSE TO CARPENTER INSPECTOR NURSE.
[2022-01-15 21:30] VITALS: BP 101/62
[2022-01-15] MEDS: MORPHINE SULFATE INJ 2 MG/ML DISP.SYRIN IV PRN (21:38)
--- NOTE | 2022-01-15 21:40 | NUR ---
RN NOTE PT COMPLAINED OF PAIN ON LEFT BACK 05/08, CHEST TUBE IN PLACE, DRESSING CLEAN DRY AND INTACT, CONNECTED TO SUCTION, WITH YELLOW DRAINAGE. DENIES ANY SOB, TOLERATING 4L O2. PT AOX4. MORPHINE GIVEN ORDERED. POTASSIUM CHLORIDE RUNNING AT 70ML/HR. WILL CONTINUE TO MONITOR.
[2022-01-16] VITALS (9 sets, daily range): BP systolic 94–108; BP diastolic 52–73
[2022-01-16] MEDS: Potassium Chloride 20 MEQ in IV NS 0.9% 1,000 ML IV SCH (02:57)
[2022-01-16] MEDS: MORPHINE SULFATE INJ 2 MG/ML DISP.SYRIN IV PRN ×3 (02:57→19:53)
--- NOTE | 2022-01-16 07:35 | NUR ---
RN NOTE PT SLEEPING, AROUSES EASILY. DENIES ANY PAIN AT THIS TIME. DENIES SOB, TOLERATING 4L O2. CHEST TUBE REMAIN IN PLACE, WITH 30ML YELLOWISH OUTPUT. CONTINUE ON KCL AT 70ML/HR. INFUSING WELL. ENDORSED TO NEXT SHIFT NURSE FOR VALERIA.
[2022-01-16 07:37] LABS: CREATININE 0.7 mg/dL (0.6-1.3); PHOSPHORUS 2.4 mg/dL (2.5-4.9); POTASSIUM 4.7 mmol/L (3.5-5.1)
[2022-01-16 07:38] LABS: MAGNESIUM 1.2 mg/dL (1.8-2.4)
[2022-01-16] MEDS: ACETAMINOPHEN 325 MG TABLET PO PRN ×3 (07:55→22:30)
--- NOTE | 2022-01-16 08:04 | NUR ---
RN OPENING NOTE PATIENT IN BED AWAKE, ALERT AND ORIENTED X 4. WITH O2 VIA NASAL CANNULA RUNNING AT 4L/MIN. WITH PIGTAIL, DRAINING TO A SERO-SANGUINOUS FLUID. DENIES SHORTNESS OF BREATH AND NOT IN OBVIOUS SIGNS OF RESPIRATORY DISTRESS. IV ON RIGHT ARM INTACT WITH NO SIGNS OF INFILTRATION OR EXTRAVASATION. BED KEPT ON LOWEST POSITION WITH 3 SIDE RAILS UP. CALL LIGHT WITHIN REACH.
[2022-01-16] MEDS: CEFEPIME 2 GM in IV D5W 100 ML IV SCH ×2 (08:17→16:49)
[2022-01-16] MEDS: Magnesium 1GM/D5W 100ML PREMIX 100 ML IV SCH ×2 (08:46→09:52)
[2022-01-16] MEDS: PANTOPRAZOLE 40 MG TABLET.DR PO SCH ×2 (08:46→16:49)
[2022-01-16] MEDS: FOLIC ACID 1 MG TABLET PO SCH (08:46)
[2022-01-16] MEDS: BUDESONIDE RESPULE INH 0.5 MG/2 ML AMPUL.NEB NEB SCH ×2 (08:59→14:47)
[2022-01-16] MEDS: SPIRONOLACTONE 25 MG TABLET PO SCH ×2 (09:00→16:50)
[2022-01-16] MEDS: PROPRANOLOL HCL 10 MG TABLET PO SCH ×2 (09:00→16:50)
[2022-01-16] MEDS: ENOXAPARIN SODIUM 30 MG/0.3 ML DISP.SYRIN SQ SCH (09:00)
[2022-01-16] MEDS: Z GUARD REMEDY 4 OZ OINT TP SCH (09:00)
[2022-01-16 09:14] LABS: BASOPHILS % (AUTO) 0.1 % (0.0-2.0); EOSINOPHILS % (AUTO) 0.5 % (0.0-6.0); LYMPHOCYTES % (AUTO) 7.1 % (20.0-44.0); MEAN CORPUSCULAR HGB CONC 33 g/dl (31.0-36.0); MEAN CORPUSCULAR VOLUME 104 fL (80-96); NEUTROPHILS # (AUTO) 11.6 K/uL (1.8-8.9); NEUTROPHILS % (AUTO) 85.3 % (43.0-81.0); PLATELET COUNT (AUTO) 130 K/uL (150-450); WHITE BLOOD COUNT (AUTO) 13.7 K/uL (4.3-11.0)
[2022-01-16 09:16] LABS: RED BLOOD CELL COUNT(AUTO) 1.91 MIL/uL (4.5-6.0)
[2022-01-16 09:17] LABS: HEMATOCRIT 20 % (39-51); HEMOGLOBIN 6.6 g/dL (13.5-17.5)
--- NOTE | 2022-01-16 09:30 | NUR ---
RN NOTE HEMOGLOBIN 6.6. REPORTED TO IQRA MCKEE. ORDER FOR 1 UNIT PRBC.
[2022-01-16] MEDS ORDERED: NEUTRA PHOS 1 POWD.PACKET PO ONE (10:00)
[2022-01-16] MEDS: LEVOFLOXACIN 750 MG /D5W 150ML 750 MG in PREMIX 1 EA IV SCH (11:58)
[2022-01-16 14:07] LABS: LYMPHOCYTES % (MANUAL) 9 % (16-48); MONOCYTES % (MANUAL) 6 % (0-11.0); NEUTROPHILS % (MANUAL) 85 (42-76)
[2022-01-16] MEDS: IV NS 0.9% 1,000 ML IV PRN (14:43)
[2022-01-16] MEDS ORDERED: LIDOCAINE 1% INJ 50 ML MDV IJ ONE (15:30)
[2022-01-16] MEDS ORDERED: MORPHINE SULFATE INJ 4 MG/ML DISP.SYRIN IV ONE (15:30)
--- NOTE | 2022-01-16 16:47 | NUR ---
RN NOTE BLOOD TRANSFUSION COMPLETED. BLOOD PRESSURE 105/67, HR 95. PATIENT DOES NOT REPORT FEELING ANY REACTION. WILL CONTINUE TO MONITOR.
--- NOTE | 2022-01-16 18:15 | NUR ---
RN NOTE CHEST TUBE PLACE IN LEFT ANTERIOR CHEST, DRAINED 10CC SINCE PLACEMENT BY AIDA DELAROSA. NO DRAINAGE FROM POSTERIOR LEFT CHEST TUBE, IRRIGATED WITH 20CC OF STERILE NS BY AIDA DELAROSA AT 1530, STILL OUTPUT OF 0.
--- NOTE | 2022-01-16 19:01 | NUR ---
RN CLOSING NOTE PATIENT REMAINS IN BED AWAKE, ALERT AND ORIENTED X 4. WITH O2 VIA NASAL CANNULA RUNNING AT 4L/MIN. LEFT POSTERIOR LOWER CHEST PIGTAIL WITH NO DRAINAGE THROUGHOUT SHIFT, IRRIGATED BY AIDA DELAROSA AT 1530. LEFT ANTERIOR UPPER CHEST TUBE IN PLACE, DRAINED 10CC SINCE PLACEMENT AT 1530 TODAY BY AIDA DELAROSA AND AIDA DOMINGUEZ. IV ON RIGHT ARM INTACT WITH NO SIGNS OF INFILTRATION OR EXTRAVASATION AND RUNNING NS AT 70 CC/HR. BED KEPT ON LOWEST POSITION WITH 3 SIDE RAILS UP. CALL LIGHT WITHIN REACH. NO SIGNS OF ACUTE DISTRESS NOTED AT THIS TIME, WILL ENDORSE TO DOG BEHAVIORIST NURSE.
--- NOTE | 2022-01-16 20:12 | NUR ---
received pt sitting on bed AOX4, L posterior and anterior chest tube in place connected to suction, dressing clean, dry, and intact, On O2 via NC at 4L with O2 sat at 99%, pt complained of pain at L chest, morphine given as ordered. Pt with IV on R arm patent and intact, NS running at 100ml/hr. Call light w/in reach. Will cont to monitor closely.
--- NOTE | 2022-01-16 22:39 | NUR ---
RN NOTE PT STILL COMPLAINED OF MILD PAIN /, STATED MORPHINE DID HELP. PT REQUESTED FOR TYLENOL.
[2022-01-17] VITALS: BP 104/69
[2022-01-17] MEDS: CEFEPIME 2 GM in IV D5W 100 ML IV SCH ×3 (00:06→16:14)
[2022-01-17] MEDS: MORPHINE SULFATE INJ 2 MG/ML DISP.SYRIN IV PRN ×3 (00:08→18:33)
[2022-01-17] MEDS: IPRATROPIUM NEB FS 0.5 MG/2.5 ML AMPUL.NEB NEB PRN (03:00)
[2022-01-17] MEDS: ALBUTEROL FS 2.5 MG/0.5 ML VIAL.NEB NEB PRN ×3 (03:00→15:36)
--- NOTE | 2022-01-17 03:18 | NUR ---
RN NOTE PT NOTED WITH SOB, 98% O2SAT AT 4L. BREATHING TX GIVEN BY RT. NO CHANGES IN LOC NOTED. BREATHING IMPROVED AFTER TX. COMPLAINED OF NAUSEA. NO VOMITING NOTED. WILL CONTINUE TO MONITOR.
[2022-01-17 05:00] VITALS: BP 113/75
--- NOTE | 2022-01-17 05:31 | NUR ---
RN NOTE PT SLEEPING COMFORTABLY. NO SIGNS OF DISTRESS NOTED.
--- NOTE | 2022-01-17 06:45 | NUR ---
RN CLOSING NOTES PT SLEEPING ON BED AROUSES EASILY. NO SIGNS OF DISTRESS. SATING 100% ON 4L VIA NC TITRATED DOWN TO 2L TOLERATING WELL. CHEST TUBE REMAIN IN PLACED DENIES PAIN AT THIS TIME. L POSTERIOR CT NO OUTPUT, L ANTERIOR CT W 170 ML SEROUS DRAINAGE. IV NS RUNNING AT 70ML INFUSING WELL. PT REMAIN AFEBRILE. NO CHANGES IN LOC. CALL LIGHT W/IN REACH AT ALL TIMES. ON FREQUENT VISUAL CHECKS. WILL ENDORSED TO THE NEXT SHIFT.
[2022-01-17 07:08] LABS: BASOPHILS % (AUTO) 0.1 % (0.0-2.0); EOSINOPHILS % (AUTO) 0.5 % (0.0-6.0); HEMATOCRIT 23 % (39-51); HEMOGLOBIN 7.5 g/dL (13.5-17.5); LYMPHOCYTES # (AUTO) 1.1 K/uL (0.8-4.8); LYMPHOCYTES % (AUTO) 7.2 % (20.0-44.0); MEAN CORPUSCULAR HGB CONC 33 g/dl (31.0-36.0); MEAN CORPUSCULAR VOLUME 103 fL (80-96); MONOCYTES # (AUTO) 1.3 K/uL (0.1-1.30); MONOCYTES % (AUTO) 8.3 % (2.0-12.0); NEUTROPHILS # (AUTO) 12.8 K/uL (1.8-8.9); NEUTROPHILS % (AUTO) 83.9 % (43.0-81.0); PLATELET COUNT (AUTO) 109 K/uL (150-450); RED BLOOD CELL COUNT(AUTO) 2.19 MIL/uL (4.5-6.0); WHITE BLOOD COUNT (AUTO) 15.3 K/uL (4.3-11.0)
--- NOTE | 2022-01-17 07:30 | NUR ---
RN NOTES PT FOUND SITTING UP DISPLAYING NO S/S OF DISTRESS, PT ENDORSES 3/10 PAIN AND IS BREATHING EVEN AND UNLABORED 4L O2 NC. L POSTERIOR CHEST TUBE INSERTION SITE IS CLEAN, DRY AND QUIET, RESERVOIR MARKED. R ANTERIOR CHEST TUBE INSERTION SITE IS CLEAN, DRY AND QUIET, RESERVOIR MARKED. R WRIST 20G IV IS PATIENT AND INTACT. VSS, RN WILL MONITOR AND TREAT THROUGHOUT SHIFT. SAFETY MEASURES IN PLACE, BED LOCKED AND IN LOWEST POSITION, SIDE RAILS UPX2, CALL LIGHT WITHIN REACH, PT INSTRUCTED TO CALL FOR ASSISTANCE. Addendum: 01/17/22 at 1916 by AYAH CAREY RN L ANTERIOR, NOT RIGHT
[2022-01-17] MEDS: ACETAMINOPHEN 325 MG TABLET PO PRN (07:55)
[2022-01-17 08:00] VITALS: BP 102/56
[2022-01-17 08:06] LABS: CALCIUM, SERUM 8.2 mg/dL (8.5-10.1); CREATININE 0.7 mg/dL (0.6-1.3); MAGNESIUM 1.5 mg/dL (1.8-2.4); PHOSPHORUS 2.9 mg/dL (2.5-4.9); POTASSIUM 4.9 mmol/L (3.5-5.1)
[2022-01-17] MEDS: BUDESONIDE RESPULE INH 0.5 MG/2 ML AMPUL.NEB NEB SCH ×2 (08:10→15:36)
[2022-01-17] MEDS: SPIRONOLACTONE 25 MG TABLET PO SCH ×2 (08:36→16:14)
[2022-01-17] MEDS: PANTOPRAZOLE 40 MG TABLET.DR PO SCH ×2 (08:36→16:14)
[2022-01-17] MEDS: FOLIC ACID 1 MG TABLET PO SCH (08:36)
[2022-01-17] MEDS: ENOXAPARIN SODIUM 30 MG/0.3 ML DISP.SYRIN SQ SCH (08:41)
[2022-01-17] MEDS: PROPRANOLOL HCL 10 MG TABLET PO SCH ×2 (09:00→16:08)
[2022-01-17] MEDS: Z GUARD REMEDY 4 OZ OINT TP SCH (09:59)
[2022-01-17] MEDS: IV NS 0.9% 1,000 ML IV PRN ×2 (10:05→23:51)
[2022-01-17] MEDS: Magnesium 1GM/D5W 100ML PREMIX 100 ML IV SCH ×2 (10:06→11:01)
[2022-01-17 12:00] VITALS: BP 111/61
[2022-01-17] MEDS: LEVOFLOXACIN 750 MG /D5W 150ML 750 MG in PREMIX 1 EA IV SCH (12:45)
[2022-01-17 16:00] VITALS: BP 98/59
[2022-01-17] MEDS: MIDODRINE HCL (5MG) 5 MG TABLET PO SCH (17:49)
--- NOTE | 2022-01-17 19:14 | NUR ---
RN NOTES PT FOUND SITTING UP DISPLAYING NO S/S OF DISTRESS, PT ENDORSES 3/10 PAIN AND IS BREATHING EVEN AND UNLABORED ON RA. L POSTERIOR CHEST TUBE INSERTION SITE IS CLEAN, DRY AND QUIET, RESERVOIR MARKED W/ SLAB MILLER OPERATOR RN. L ANTERIOR CHEST TUBE INSERTION SITE IS CLEAN, DRY AND QUIET, RESERVOIR MARKED W/ SLAB MILLER OPERATOR RN. R WRIST 20G IV IS PATIENT AND INTACT. SBAR AND REPORT GIVEN TO SLAB MILLER OPERATOR RN, ALL QUESTIONS ANSWERED. SAFETY MEASURES IN PLACE, BED LOCKED AND IN LOWEST POSITION, SIDE RAILS UPX2, CALL LIGHT WITHIN REACH, PT INSTRUCTED TO CALL FOR ASSISTANCE. PT ENDORSED IN STABLE CONDITION FOR VALERIA.
--- NOTE | 2022-01-17 19:30 | NUR ---
RN NOTE RECEIVED PT IN BED, AOX4. TOLERATING RA, O2 SAT AT 95%. DENIES ANY SOB, NO SIGNS OF DISTRESS NOTED. PT WITH TOLERABLE PAIN AT THIS TIME 12/06. LEFT POSTERIOR AND LEFT ANTERIOR CHEST TUBE IN PLACE CONNECTED TO SUCTION, SITE DRESSING CLEAN DRY AND INTACT. IV ON R WRIST PATENT AND INTACT, NS RUNNING AT 70ML/HR. ALL SAFETY MEASURES IN PLACE. WILL CONTINUE TO MONITOR.
[2022-01-17 20:00] VITALS: BP 114/59
[2022-01-17] MEDS: HYDROCODONE/APAP 5/325MG TABLET PO PRN (22:14)
[2022-01-18] VITALS (11 sets, daily range): BP systolic 99–119; BP diastolic 53–65
[2022-01-18] MEDS: CEFEPIME 2 GM in IV D5W 100 ML IV SCH ×4 (00:13→23:52)
[2022-01-18] MEDS: MORPHINE SULFATE INJ 2 MG/ML DISP.SYRIN IV PRN ×4 (01:22→21:49)
[2022-01-18] MEDS: HYDROCODONE/APAP 5/325MG TABLET PO PRN ×4 (05:36→23:52)
[2022-01-18 06:58] LABS: BASOPHILS % (AUTO) 0.1 % (0.0-2.0); EOSINOPHILS % (AUTO) 1.1 % (0.0-6.0); HEMATOCRIT 21 % (39-51); LYMPHOCYTES # (AUTO) 1.4 K/uL (0.8-4.8); LYMPHOCYTES % (AUTO) 8.8 % (20.0-44.0); MEAN CORPUSCULAR HGB CONC 34 g/dl (31.0-36.0); MEAN CORPUSCULAR VOLUME 103 fL (80-96); MONOCYTES # (AUTO) 1.5 K/uL (0.1-1.30); MONOCYTES % (AUTO) 9.6 % (2.0-12.0); NEUTROPHILS # (AUTO) 12.6 K/uL (1.8-8.9); NEUTROPHILS % (AUTO) 80.4 % (43.0-81.0); PLATELET COUNT (AUTO) 112 K/uL (150-450); RED BLOOD CELL COUNT(AUTO) 2.01 MIL/uL (4.5-6.0); WHITE BLOOD COUNT (AUTO) 15.7 K/uL (4.3-11.0)
[2022-01-18] MEDS: BUDESONIDE RESPULE INH 0.5 MG/2 ML AMPUL.NEB NEB SCH ×2 (07:05→14:37)
--- NOTE | 2022-01-18 07:05 | NUR ---
RN NOTES PT TOLERATING RA. NO CHANGES IN LOC. NO SIGNS OF DISTRESS NOTED DENIES ANY SOB. PT PAIN RELIEVED BY NORCO. SR ON TELE MONITOR. [address] CHE[address] REMAIN IN PLACE. L POSTERIOR, 0 OUTPUT, L ANTERIOR 30ML SEROUS DRAINAGE. CONTINUE ON IVFLUIDS NS 70ML/HR. ENDORSED TO NEXT SHIFT NURSE FOR VALERIA.
--- NOTE | 2022-01-18 07:12 | NUR ---
RN OPENING NOTES RECEIVED PT IN BED AND AWAKE. A/O X3. PT TOLERATING RA. NO CHANGES IN LOC. NO SIGNS OF DISTRESS NOTED DENIES ANY SOB. PT PAIN RELIEVED BY NORCO. SR ON TELE MONITOR. [address] REMAIN IN PLACE. IV FLUIDS RUNNING AT 70ML/HR. ALL SAFETY MEASURES IN PLACE, BED IN LOWEST LOCKED POSITION, SR UP X2, CALL LIGHT WITHIN REACH. WILL CONTINUE TO MONITOR THROUGHOUT SHIFT.
[2022-01-18 07:17] LABS: HEMOGLOBIN 6.9 g/dL (13.5-17.5)
[2022-01-18] MEDS: ACETAMINOPHEN 325 MG TABLET PO PRN ×2 (07:21→20:42)
--- NOTE | 2022-01-18 07:29 | NUR ---
RN NOTES HGB LEVEL 6.9. WAITING FOR BLOOD. WILL TRANSFUSE WHEN READY.
[2022-01-18] MEDS: PROPRANOLOL HCL 10 MG TABLET PO SCH ×2 (08:19→17:32)
[2022-01-18] MEDS: Z GUARD REMEDY 4 OZ OINT TP SCH (08:20)
[2022-01-18] MEDS: ENOXAPARIN SODIUM 30 MG/0.3 ML DISP.SYRIN SQ SCH (08:25)
--- NOTE | 2022-01-18 08:26 | NUR ---
RN NOTES HELD LOVENOX DUE TO TO HGB LVL OF 6.9.
[2022-01-18] MEDS: SPIRONOLACTONE 25 MG TABLET PO SCH ×2 (08:28→17:32)
[2022-01-18] MEDS: PANTOPRAZOLE 40 MG TABLET.DR PO SCH ×2 (08:29→17:31)
[2022-01-18] MEDS: FOLIC ACID 1 MG TABLET PO SCH (08:29)
[2022-01-18] MEDS: MIDODRINE HCL (5MG) 5 MG TABLET PO SCH ×3 (08:29→17:39)
[2022-01-18] MEDS: Magnesium 1GM/D5W 100ML PREMIX 100 ML IV SCH ×2 (08:37→09:48)
[2022-01-18] MEDS: LEVOFLOXACIN (250MG) 250 MG TABLET PO SCH (12:06)
--- NOTE | 2022-01-18 14:23 | NUR ---
RN NOTES CALLED BLOOD BANK, BLOOD NOT READY.
--- NOTE | 2022-01-18 19:35 | NUR ---
RN NOTES RECEIVED PT FOR CONTINUITY OF CARE. PATIENT A/OX4 IN NO S/SX OF ACUTE DISTRESS AT THIS TIME. WILL ENSURE SAFETY MEASURES WITHIN THE SHIFT. PATIENT BED ALARM IS ON. HEAD OF BED ELEVATED. BED IS LOCKED, IN LOWEST POSITION AND SIDE RAILS UP. CALL LIGHT WITHIN REACH OF THE PATIENT. APPLICABLE ISOLATION PRECAUTIONS IN PLACE. WILL CONTINUE TO MONITOR AND REASSESS FOR ANY CHANGES AND WILL CARRY OUT ANY ONGOING AND ACTIVE MD ORDER.
--- NOTE | 2022-01-18 20:05 | NUR ---
RN CLOSING NOTES PT IN BED RESTING, TRANSFUSION OF RBC COMPLETE. PT TOLERATING RA. NO CHANGES IN LOC. NO SIGNS OF DISTRESS NOTED DENIES ANY SOB. PT PAIN RELIEVED BY NORCO. SR ON TELE MONITOR. [address] CHEST TU[address] REMAIN IN PLACE. L POSTERIOR, 10 OUTPUT, L ANTERIOR 30ML SEROUS DRAINAGE. CONTINUE ON IVFLUIDS NS 70ML/HR. ENDORSED TO DIAZ KING FOR VALERIA.
[2022-01-19] VITALS: BP 92/61
[2022-01-19 04:00] VITALS: BP 100/57
[2022-01-19] MEDS: MORPHINE SULFATE INJ 2 MG/ML DISP.SYRIN IV PRN ×4 (04:06→22:34)
[2022-01-19] MEDS: HYDROCODONE/APAP 5/325MG TABLET PO PRN ×3 (06:20→20:06)
--- NOTE | 2022-01-19 06:36 | NUR ---
RN CLOSING NOTE: PATIENT REMAINS IN ROOM IN NO SIGNS OF RESPIRATORY DISTRESS. SAFETY MEASURES IMPLEMENTED, BED IN LOWEST POSITION, LOCKED, SIDE RAILS UP, CALL LIGHT WITHIN REACH. ALL NEEDS AND ORDERS ADDRESSED DURING THE SHIFT. IV ACCESS MAINTAINED INTACT, SECURED AND FLUSHING WELL. ALL DUE MEDS GIVEN ORDERED & SCHEDULED ; PATIENT TOLERATED WELL. PATIENT KEPT CLEAN AND COMFORTABLE WITHIN THE SHIFT. PATIENT ENDORSED TO INCOMING SHIFT RN WITH STABLE VITAL SIGN AND FOR CONTINUITY OF CARE.
--- NOTE | 2022-01-19 07:30 | NUR ---
Patient is in bed with head of bed at 45 degrees, alert oriented x 4. Patient is on room air with no signs of labored breathing or respiratory distress. Pigtails are in place on left anterior and posterior chest, with dry intact dressing. Right wrist IV is intact and patent with no signs of infiltration. Bed is locked in the lowest position, 3 guard rails raised, call mcguire within reach and all hospital safety precautions are in place. Will continue to monitor throughout shift.
[2022-01-19 07:35] LABS: BASOPHILS % (AUTO) 0.2 % (0.0-2.0); EOSINOPHILS % (AUTO) 1.1 % (0.0-6.0); HEMATOCRIT 26 % (39-51); HEMOGLOBIN 8.5 g/dL (13.5-17.5); LYMPHOCYTES # (AUTO) 1.6 K/uL (0.8-4.8); LYMPHOCYTES % (AUTO) 9.5 % (20.0-44.0); MEAN CORPUSCULAR HGB CONC 33 g/dl (31.0-36.0); MEAN CORPUSCULAR VOLUME 100 fL (80-96); MONOCYTES # (AUTO) 1.3 K/uL (0.1-1.30); MONOCYTES % (AUTO) 8.1 % (2.0-12.0); NEUTROPHILS # (AUTO) 13.3 K/uL (1.8-8.9); NEUTROPHILS % (AUTO) 81.1 % (43.0-81.0); PLATELET COUNT (AUTO) 140 K/uL (150-450); RED BLOOD CELL COUNT(AUTO) 2.56 MIL/uL (4.5-6.0); WHITE BLOOD COUNT (AUTO) 16.4 K/uL (4.3-11.0)
[2022-01-19 07:40] LABS: CALCIUM, SERUM 8.1 mg/dL (8.5-10.1); CREATININE 0.7 mg/dL (0.6-1.3); MAGNESIUM 1.8 mg/dL (1.8-2.4); PHOSPHORUS 3.4 mg/dL (2.5-4.9); POTASSIUM 4.1 mmol/L (3.5-5.1)
[2022-01-19 08:00] VITALS: BP 106/65
[2022-01-19] MEDS: IV NS 0.9% 1,000 ML IV PRN ×2 (08:04→23:43)
[2022-01-19] MEDS: BUDESONIDE RESPULE INH 0.5 MG/2 ML AMPUL.NEB NEB SCH ×2 (08:21→15:16)
[2022-01-19] MEDS: MIDODRINE HCL (5MG) 5 MG TABLET PO SCH ×3 (08:41→16:33)
[2022-01-19] MEDS: SPIRONOLACTONE 25 MG TABLET PO SCH ×2 (08:41→17:00)
[2022-01-19] MEDS: PANTOPRAZOLE 40 MG TABLET.DR PO SCH ×2 (08:41→16:32)
[2022-01-19] MEDS: FOLIC ACID 1 MG TABLET PO SCH (08:41)
[2022-01-19] MEDS: Z GUARD REMEDY 4 OZ OINT TP SCH (09:00)
[2022-01-19] MEDS: CEFEPIME 2 GM in IV D5W 100 ML IV SCH ×3 (09:01→23:40)
[2022-01-19] MEDS: ENOXAPARIN SODIUM 40 MG/0.4 ML DISP.SYRIN SQ SCH (09:31)
[2022-01-19] MEDS: PROPRANOLOL HCL 10 MG TABLET PO SCH ×2 (10:38→17:00)
[2022-01-19] MEDS: LEVOFLOXACIN (250MG) 250 MG TABLET PO SCH (12:07)
[2022-01-19 12:32] VITALS: BP 100/72
--- NOTE | 2022-01-19 15:38 | NUR ---
RN NOTE PATIENT COMPLAINED OF BACK PAIN 05/08. DID NOT GIVE MORPHINE IV DUE TO BP AT 95/48. APPLIED ICE PACK ON LEFT UPPER BACK AND SHOULDER INSTEAD. WILL RECHECK BP IN 30 MINUTES.
[2022-01-19 16:23] VITALS: BP 95/46
[2022-01-19] MEDS: ACETAMINOPHEN 325 MG TABLET PO PRN (18:04)
--- NOTE | 2022-01-19 18:40 | NUR ---
RN CLOSING NOTE PATIENT IS IN BED WITH HEAD OD BED AT 45 DEGREES,ALERT ORIENTED X 4. PATIENT IS ON ROOM AIR WITH NO SIGNS OF LABORED BREATHING OR RESPIRATORY DISTRESS. PIGTAILS ARE IN PLACE, WITH ZERO OUTPUT. RIGHT WRIST IV IS INTACT AND PATENT WITH NO SIGNS OF INFILTRATION. BED IS LOCKED AND IN LOWEST POSITION, 3 GUARD RAILS RAISED, CALL SCHRADER WITHIN REACH AND ALL HOSPITAL SAFETY PRECAUTIONS ARE IN PLACE. ALL DUE MEDICATIONS GIVEN AND PATIENT REMAINED STABLE THROUGHOUT SHIFT. WILL ENDORSE TO SOLE ASSESSOR RN.
[2022-01-19 20:00] VITALS: BP 100/51
[2022-01-20] VITALS: BP 95/46
[2022-01-20] MEDS: HYDROCODONE/APAP 5/325MG TABLET PO PRN ×2 (02:12→21:45)
[2022-01-20 04:00] VITALS: BP 100/57
[2022-01-20] MEDS: MORPHINE SULFATE INJ 2 MG/ML DISP.SYRIN IV PRN ×3 (05:21→16:41)
[2022-01-20 07:16] LABS: BASOPHILS # (AUTO) 0.1 K/uL (0.0-0.2); BASOPHILS % (AUTO) 0.4 % (0.0-2.0); EOSINOPHILS % (AUTO) 0.6 % (0.0-6.0); HEMATOCRIT 23 % (39-51); HEMOGLOBIN 7.8 g/dL (13.5-17.5); LYMPHOCYTES # (AUTO) 1.6 K/uL (0.8-4.8); LYMPHOCYTES % (AUTO) 9.7 % (20.0-44.0); MEAN CORPUSCULAR HGB CONC 33 g/dl (31.0-36.0); MEAN CORPUSCULAR VOLUME 101 fL (80-96); MONOCYTES # (AUTO) 1.6 K/uL (0.1-1.30); MONOCYTES % (AUTO) 9.7 % (2.0-12.0); NEUTROPHILS # (AUTO) 13.2 K/uL (1.8-8.9); NEUTROPHILS % (AUTO) 79.6 % (43.0-81.0); PLATELET COUNT (AUTO) 157 K/uL (150-450); WHITE BLOOD COUNT (AUTO) 16.5 K/uL (4.3-11.0)
--- NOTE | 2022-01-20 07:30 | NUR ---
RN OPENING NOTE PT OBSERVED IN BED WITH HOB HIGH FOWLERS. PT IS ON RA TOLERATING WELL AT THIS TIME WITH NO SIGNS OF DISTRESS OR LABORED BREATHING AT THIS TIME SAT 100%. PT HAS TWO CHEST TUBES AT THIS TIME: #1 CHEST TUBE (OLD) LEFT SIDE AND #2 CHEST TUBE RIGHT SIDE. PT IS A/OX4 TELE MONITORED SR AT THIS TIME 82BPM. IV ACCESS R WRIST INFUSING WITH NS @70ML/HR. BED IS LOCKED IN LOWEST POSITION X 3 BED RAILS UP, ALL HOSPITAL SAFETY PROTOCOLS ARE IN PLACE AND WILL CONTINUE TO MONITOR THIS SHIFT.
[2022-01-20] MEDS: BUDESONIDE RESPULE INH 0.5 MG/2 ML AMPUL.NEB NEB SCH ×2 (07:41→16:24)
[2022-01-20 07:42] LABS: CALCIUM, SERUM 7.9 mg/dL (8.5-10.1); CREATININE 0.6 mg/dL (0.6-1.3); MAGNESIUM 1.7 mg/dL (1.8-2.4); PHOSPHORUS 3.3 mg/dL (2.5-4.9); POTASSIUM 4.1 mmol/L (3.5-5.1)
[2022-01-20] MEDS: CEFEPIME 2 GM in IV D5W 100 ML IV SCH ×3 (07:47→23:21)
[2022-01-20] MEDS: ACETAMINOPHEN 325 MG TABLET PO PRN ×2 (07:53→23:34)
[2022-01-20 08:00] VITALS: BP 111/67
[2022-01-20] MEDS: SPIRONOLACTONE 25 MG TABLET PO SCH ×2 (09:04→16:38)
[2022-01-20] MEDS: FOLIC ACID 1 MG TABLET PO SCH (09:04)
[2022-01-20] MEDS: PANTOPRAZOLE 40 MG TABLET.DR PO SCH ×2 (09:05→16:40)
[2022-01-20] MEDS: MIDODRINE HCL (5MG) 5 MG TABLET PO SCH ×3 (09:05→16:39)
[2022-01-20] MEDS: PROPRANOLOL HCL 10 MG TABLET PO SCH ×2 (09:05→16:38)
[2022-01-20] MEDS: Z GUARD REMEDY 4 OZ OINT TP SCH (09:06)
[2022-01-20] MEDS: ENOXAPARIN SODIUM 40 MG/0.4 ML DISP.SYRIN SQ SCH (09:09)
[2022-01-20] MEDS ORDERED: MAGNESIUM OXIDE 400 MG TABLET PO ONE (11:00)
[2022-01-20 12:00] VITALS: BP 100/51
[2022-01-20] MEDS: LEVOFLOXACIN (250MG) 250 MG TABLET PO SCH (12:06)
[2022-01-20 16:00] VITALS: BP 117/51
--- NOTE | 2022-01-20 18:59 | NUR ---
RN CLOSING NOTE PT IS IN BED WITH HOB HIGH FOWLERS. PT IS ON RA TOLERATING WELL AT THIS TIME WITH NO SIGNS OF DISTRESS OR LABORED BREATHING AT THIS TIME SAT 100%. PT HAS TWO CHEST TUBES AT THIS TIME: #1 CHEST TUBE (OLD) LEFT SIDE AND #2 CHEST TUBE RIGHT SIDE -20ML. PT IS A/OX4 TELE MONITORED SR AT THIS TIME 78BPM. IV ACCESS R WRIST INFUSING WITH NS @70ML/HR. BED IS LOCKED IN LOWEST POSITION X 3 BED RAILS UP, ALL HOSPITAL SAFETY PROTOCOLS ARE IN PLACE AND WILL ENDORSE TO PRIMARY MONTESSORI TEACHER FOR VALERIA.
[2022-01-20 20:00] VITALS: BP 95/55
--- NOTE | 2022-01-20 20:04 | NUR ---
RN NOTE PATIENT ALERT AND ORIENTED X4. ABLE TO MAKE NEEDS KNOWN. ON ROOM AIR, NO S/S OF RESPIRATORY DISTRESS. PT NOTED WITH TWO CHEST TUBE, PATENT AND INTACT. WILL MONITOR FOR ANY DRAINAGE. ON TELE MONITOR, SR AT THIS TIME. IV ACCESS ON RIGHT WRIST INFUSING NS @ 70ML/HR. NO S/S OF INFILTRATION. BED LOCKED AND IN LOWEST POSITION. CALL LIGHT WITHIN REACH. ALL NEEDS ANTICIPATED.
[2022-01-20] MEDS: IV NS 0.9% 1,000 ML IV PRN (23:25)
[2022-01-21] VITALS: BP 97/56
[2022-01-21 04:00] VITALS: BP 97/51
[2022-01-21] MEDS: HYDROCODONE/APAP 5/325MG TABLET PO PRN (04:17)
--- NOTE | 2022-01-21 06:48 | NUR ---
RN NOTE PATIENT RESTING IN BED. ON ROOM AIR, NO SOB NOTED. PT NOTED WITH TWO CHEST TUBE, PATENT AND INTACT. NO OUTPUT IN THIS SHIFT. IV ACCESS ON RIGHT WRIST INFUSING NS @ 70ML/HR. NO S/S OF INFILTRATION. ALL NEEDS ATTENDED PROMPTLY. BED LOCKED AND IN LOWEST POSITION. CALL LIGHT WITHIN REACH. WILL ENDORSE TO AM SHIFT.
--- NOTE | 2022-01-21 07:27 | NUR ---
RN OPENING NOTE PATIENT RECEIVED IN BED, A&OX4. PATIENT ON ROOM AIR WITH NO SIGNS OF LABORED BREATHING AT THIS TIME. RIGHT WRIST IV IN PLACE RUNNING NS AT 70 CC/HR. ANTERIOR UPPER LEFT CHEST PIGTAIL IN PLACE, NO OVERNIGHT DRAINAGE REPORTED BY BRAKE LININGS COATER. POSTERIOR LEFT LOWER CHEST PIGTAIL IN PLACE, NO OVERNIGHT DRAINAGE REPORT BY BRAKE LININGS COATER. NO SIGNS OF ACUTE DISTRESS NOTED AT THIS TIME. BED LOCKED AND IN LOWEST POSITION, CALL LIGHT WITHIN REACH, 2 SIDE RAILS UP. WILL CONTINUE TO MONITOR.
[2022-01-21 07:47] LABS: BASOPHILS # (AUTO) 0.1 K/uL (0.0-0.2); BASOPHILS % (AUTO) 0.3 % (0.0-2.0); EOSINOPHILS % (AUTO) 0.8 % (0.0-6.0); HEMATOCRIT 24 % (39-51); HEMOGLOBIN 7.8 g/dL (13.5-17.5); LYMPHOCYTES # (AUTO) 1.8 K/uL (0.8-4.8); LYMPHOCYTES % (AUTO) 10.4 % (20.0-44.0); MEAN CORPUSCULAR HGB CONC 33 g/dl (31.0-36.0); MEAN CORPUSCULAR VOLUME 102 fL (80-96); MONOCYTES # (AUTO) 1.4 K/uL (0.1-1.30); MONOCYTES % (AUTO) 8.3 % (2.0-12.0); NEUTROPHILS # (AUTO) 13.8 K/uL (1.8-8.9); NEUTROPHILS % (AUTO) 80.2 % (43.0-81.0); PLATELET COUNT (AUTO) 172 K/uL (150-450); WHITE BLOOD COUNT (AUTO) 17.2 K/uL (4.3-11.0)
[2022-01-21] MEDS: BUDESONIDE RESPULE INH 0.5 MG/2 ML AMPUL.NEB NEB SCH ×2 (07:55→15:45)
[2022-01-21 08:00] VITALS: BP 97/58
[2022-01-21 08:28] LABS: CALCIUM, SERUM 8.2 mg/dL (8.5-10.1); CREATININE 0.7 mg/dL (0.6-1.3); MAGNESIUM 1.5 mg/dL (1.8-2.4); PHOSPHORUS 3.3 mg/dL (2.5-4.9); POTASSIUM 4.6 mmol/L (3.5-5.1)
[2022-01-21] MEDS: FOLIC ACID 1 MG TABLET PO SCH (08:28)
[2022-01-21] MEDS: PANTOPRAZOLE 40 MG TABLET.DR PO SCH ×2 (08:28→16:06)
[2022-01-21] MEDS: ENOXAPARIN SODIUM 40 MG/0.4 ML DISP.SYRIN SQ SCH (08:28)
[2022-01-21] MEDS: MIDODRINE HCL (5MG) 5 MG TABLET PO SCH ×3 (08:28→16:06)
[2022-01-21] MEDS: MORPHINE SULFATE INJ 2 MG/ML DISP.SYRIN IV PRN ×4 (08:30→22:49)
[2022-01-21] MEDS: PROPRANOLOL HCL 10 MG TABLET PO SCH (08:30)
[2022-01-21] MEDS: SPIRONOLACTONE 25 MG TABLET PO SCH ×2 (08:31→16:06)
[2022-01-21] MEDS: CEFEPIME 2 GM in IV D5W 100 ML IV SCH ×3 (08:31→23:48)
[2022-01-21] MEDS: Z GUARD REMEDY 4 OZ OINT TP SCH (08:33)
--- NOTE | 2022-01-21 09:38 | NUR ---
RN NOTE PER DR. SINGH ORDER, BOTH CHEST PIGTAIL CLAMPED AND CXR ORDERED IN 2 HOURS. WILL CONTINUE TO MONITOR.
[2022-01-21] MEDS ORDERED: MAGNESIUM OXIDE 400 MG TABLET PO ONE (10:00)
[2022-01-21 12:00] VITALS: BP 103/55
[2022-01-21] MEDS: LEVOFLOXACIN (250MG) 250 MG TABLET PO SCH (12:03)
[2022-01-21 16:00] VITALS: BP 92/54
[2022-01-21] MEDS: IV NS 0.9% 1,000 ML IV PRN (16:04)
[2022-01-21] MEDS: ACETAMINOPHEN 325 MG TABLET PO PRN (17:27)
--- NOTE | 2022-01-21 18:32 | NUR ---
RN CLOSING NOTE PATIENT REMAINS IN BED, A&OX4. PATIENT ON ROOM AIR WITH NO SIGNS OF LABORED BREATHING AT THIS TIME. RIGHT WRIST IV IN PLACE RUNNING NS AT 70 CC/HR. ANTERIOR UPPER LEFT CHEST PIGTAIL IN PLACE, CLAMPED SINCE [address] SINGH ORDER, TO REMAIN CLAMP FOR NOW ORDERED. POSTERIOR LEFT LOWER CHEST PIGTAIL IN PLACE, CLAMPED SINCE 934 PER PELITALO ORDER, TO REMAIN CLAMP FOR NOW ORDERED. NO SIGNS OF ACUTE DISTRESS NOTED AT THIS TIME. ALL NEEDS ATTENDED DURING SHIFT. BED LOCKED AND IN LOWEST POSITION, CALL LIGHT WITHIN REACH, 2 SIDE RAILS UP. WILL ENDORSE TO ORAL HYGIENIST NURSE.
--- NOTE | 2022-01-21 19:50 | NUR ---
RN OPENING NOTES RECEIVED PATIENT IN BED, AOX4 NOT IN RESPIRATORY DISTRESS O2 SATING 98% RA, WITH IV NS AT R WRIST INFUSING WELL AT 70CC/HR, ANTERIOR UPPER LEFT CHEST PIGTAIL AND POSTERIOR LEFT LOWER CHEST PIGTAIL IN PLACED, REMAINED CLAMP PER MD ORDER, VITAL SIGNS TAKEN WNL, BED LOCKED IN LOWEST POSITION, CALL LIGHT WITHIN REACH, WILL CONTINUE TO MONITOR.
[2022-01-21 20:00] VITALS: BP 100/40
--- NOTE | 2022-01-21 22:49 | NUR ---
RN NOTE COMPLAINED OF SEVERE PAIN ON LEFT ANTERIOR AND POSTERIOR CHEST WALL AND LOW BACK PAIN. REQUESTING FOR MORPHINE. BLOOD PRESSURE STABLE. ADMINISTERED MORPHINE PRN ORDERED.
[2022-01-22] VITALS: BP 107/60
--- NOTE | 2022-01-22 00:45 | NUR ---
RN NOTE PATIENT COMPLAINED OF SOB, NOTED WITH O2 DESATURATION 60% ON ROOM AIR. ADMINISTERED 15L NON REBREATHER MASK. PATIENT REFUSED AND TOOK MASK OFF. EXPLAINED RISKS AND BENEFITS, STILL STRONGLY REFUSED. ADMINISTERED O2 5L VIA NASAL CANNULA, PATIENT AGREED. O2 SATURATION INCREASING TO 80%. CHARGE NURSE AT BEDSIDE. 0100- REASSESSED PATIENT. PATIENT STATED "I FEEL BETTER". CONTINUES ON 5L NC, O2 SAT 98%.
[2022-01-22] MEDS: ACETAMINOPHEN 325 MG TABLET PO PRN ×3 (01:12→19:46)
--- NOTE | 2022-01-22 03:00 | NUR ---
RN NOTE PATIENT O2 SAT 100%, TITRATED O2 TO 4L VIA NASAL CANNULA. NO SOB NOTED. WILL CONTINUE TO MONITOR.
[2022-01-22 04:00] VITALS: BP 106/58
[2022-01-22] MEDS: HYDROCODONE/APAP 5/325MG TABLET PO PRN ×2 (04:17→21:17)
--- NOTE | 2022-01-22 04:17 | NUR ---
RN NOTE PATIENT COMPLAINED OF MODERATE PAIN ON ANTERIOR AND POSTERIOR CHEST TUBES AND LOW BACK PAIN, REQUESTING FOR NORCO PRN. VITAL SIGNS STABLE. NORCO PRN GIVEN ORDERED. CHARGE NURSE AWARE. TITRATED O2 TO 3L VIA NASAL CANNULA. NO S/S OF ANY RESPIRATORY DISTRESS.
--- NOTE | 2022-01-22 05:30 | NUR ---
RN NOTE O2 SAT 100%, TITRATED O2 TO 2L VIA NASAL CANNULA. NO SOB NOTED.
[2022-01-22] MEDS: IV NS 0.9% 1,000 ML IV PRN (06:35)
[2022-01-22 06:59] LABS: BASOPHILS # (AUTO) 0.1 K/uL (0.0-0.2); BASOPHILS % (AUTO) 0.4 % (0.0-2.0); EOSINOPHILS % (AUTO) 0.7 % (0.0-6.0); HEMATOCRIT 22 % (39-51); HEMOGLOBIN 7.1 g/dL (13.5-17.5); LYMPHOCYTES # (AUTO) 1.7 K/uL (0.8-4.8); LYMPHOCYTES % (AUTO) 10.7 % (20.0-44.0); MEAN CORPUSCULAR HGB CONC 33 g/dl (31.0-36.0); MEAN CORPUSCULAR VOLUME 103 fL (80-96); MONOCYTES # (AUTO) 1.2 K/uL (0.1-1.30); MONOCYTES % (AUTO) 7.7 % (2.0-12.0); NEUTROPHILS # (AUTO) 12.6 K/uL (1.8-8.9); NEUTROPHILS % (AUTO) 80.5 % (43.0-81.0); PLATELET COUNT (AUTO) 190 K/uL (150-450); RED BLOOD CELL COUNT(AUTO) 2.09 MIL/uL (4.5-6.0); WHITE BLOOD COUNT (AUTO) 15.6 K/uL (4.3-11.0)
[2022-01-22 07:01] LABS: CALCIUM, SERUM 8.4 mg/dL (8.5-10.1); CREATININE 0.8 mg/dL (0.6-1.3); MAGNESIUM 1.4 mg/dL (1.8-2.4); PHOSPHORUS 3.3 mg/dL (2.5-4.9); POTASSIUM 4.8 mmol/L (3.5-5.1)
--- NOTE | 2022-01-22 07:20 | NUR ---
-RN CLOSING NOTES 0600-PT ON RA O2 SATURATION 100% 0720 PATIENT REMAINS IN BED, AOX4. PATIENT ON ROOM AIR WITH NO SIGNS OF RESPIRATORY DISTRESS. RIGHT WRIST IV NS IN PLACE INFUSING WELL AT 70 CC/HR. ANTERIOR UPPER LEFT CHEST AND POSTERIOR LEFT LOWER CHEST PIGTAIL IN PLACE, TO REMAIN CLAMP FOR NOW ORDERED BY DR. SINGH. DUE MEDS GIVEN PER MD ORDER. ALL NEEDS ATTENDED DURING SHIFT. BED LOCKED AND IN LOWEST POSITION, CALL LIGHT WITHIN REACH. WILL ENDORSE TO THE NEXT SHIFT NURSE
--- NOTE | 2022-01-22 07:45 | NUR ---
RN OPENING NOTES Patient seen comfortably lying in bed, no apparent distress noted, respirations even and unlabored, no shortness of breath, denies any pain or discomfort at this time, no grimacing. Call light left within reach, safety precautions in place, brakes locked, side rails up X 2, will monitor closely for any changes.
[2022-01-22] MEDS: BUDESONIDE RESPULE INH 0.5 MG/2 ML AMPUL.NEB NEB SCH ×2 (07:53→13:46)
[2022-01-22 08:00] VITALS: BP 108/73
[2022-01-22] MEDS: ENOXAPARIN SODIUM 40 MG/0.4 ML DISP.SYRIN SQ SCH (09:00)
[2022-01-22] MEDS: FOLIC ACID 1 MG TABLET PO SCH (09:13)
[2022-01-22] MEDS: CEFEPIME 2 GM in IV D5W 100 ML IV SCH ×2 (09:13→16:20)
[2022-01-22] MEDS: SPIRONOLACTONE 25 MG TABLET PO SCH ×2 (09:13→16:21)
[2022-01-22] MEDS: PANTOPRAZOLE 40 MG TABLET.DR PO SCH ×2 (09:13→16:21)
[2022-01-22] MEDS: MIDODRINE HCL (5MG) 5 MG TABLET PO SCH ×3 (09:13→16:21)
[2022-01-22] MEDS: Z GUARD REMEDY 4 OZ OINT TP SCH (09:14)
[2022-01-22] MEDS: Magnesium 1GM/D5W 100ML PREMIX 100 ML IV SCH ×2 (11:42→12:41)
[2022-01-22 12:00] VITALS: BP 98/51
[2022-01-22] MEDS: LEVOFLOXACIN (250MG) 250 MG TABLET PO SCH (12:45)
[2022-01-22 16:00] VITALS: BP 97/65
--- NOTE | 2022-01-22 18:29 | NUR ---
RN CLOSING NOTES Patient lying in bed, no shortness of breath, breathing even and unlabored, no apparent distress noted, no dizziness, no palpitations, no chest pain. S/P chest tube removal today, site covered with occlusive dressing, no bleeding noted at site, no unusual drainage, no unusual odor noted. All medications given per MD order, tolerating well. Due medication given per MD order, tolerating well. Pain medication given as per MD order when non pharmacological measures ineffective. Patient has an ongoing IV fluid for hydration (NS at 70ml/hr) infusing well on his peripheral IV line on his right wrist, IV line patent, intact and flushing well, no s/s of infiltration at this time, no redness, no swelling noted. Kept clean and dry, and all needs attended, call light left within reach, safety precautions in place, brakes locked, side rails up X 2, will endorse to next shift for continuity of care.
--- NOTE | 2022-01-22 19:56 | NUR ---
RN NOTE RECEIVED PATIENT IN BED, SLEEPING, AROUSABLE TO NAME AND TOUCH. BREATHING NOTED WITH MILD SHORTNESS OF BREATH AFTER REPOSITIONING. OXYGEN SATURATION 100 PERCENT AT THIS TIME. ON 2L/MIN OXYGEN VIA NASAL CANNULA. TOLERATING WELL. ON TELE MONITORING. SINUS RHYTHM. DENIES CHEST PAIN. SKIN WARM AND DRY. NOTED RIGHT WRIST 24G. CURRENTLY INFUSING NS AT 70 CC/HR. NO INFILTRATION. CATHETER INTACT. LEFT UPPER CHEST AND LEFT MID BACK OCCLUSIVE DRESSING INACT. PT IS S/P CHEST TUBE PIGTAIL REMOVAL. NO BLEEDING NOTED. HOB ELEVATED HIGH ASTUDILLO PER PATIENT REQUEST. BILATERAL LOWER EXT ELEVATED ON PILLOWS. URINAL WITHIN REACH. BED LOW, IN LOCKED POSITION, CALL LIGHT WITHIN REACH.
[2022-01-22 22:00] VITALS: BP 103/61
[2022-01-23] VITALS: BP 103/61
[2022-01-23] MEDS: MORPHINE SULFATE INJ 2 MG/ML DISP.SYRIN IV PRN ×2 (00:01→09:29)
[2022-01-23] MEDS: IV NS 0.9% 1,000 ML IV PRN (00:07)
[2022-01-23] MEDS: ACETAMINOPHEN 325 MG TABLET PO PRN (03:37)
--- NOTE | 2022-01-23 03:41 | NUR ---
RN NOTE PATIENT COMPLAINING OF PAIN AROUND THE AREAS WHERE THE CHEST TUBE PIGTAILS WERE REMOVED FROM. PAIN ON THE LEFT UPPER CHEST AND LEFT MID BACK. PROVIDED PAIN MEDICATION ORDERED PRN PER PAIN SCALE. PATIENTS VITAL SIGNS WITHIN NORMAL LIMITS. NO S/S OF RESPIRATORY DISTRESS. REINFORCED DRESSING ON LEFT UPPER CHEST AND BACK. WILL CONTINUE TO MONITOR.
[2022-01-23 04:56] VITALS: BP 112/56
[2022-01-23] MEDS: HYDROCODONE/APAP 5/325MG TABLET PO PRN (06:32)
--- NOTE | 2022-01-23 06:34 | NUR ---
RN NOTE CLOSING NO SIGNIFICANT CHANGES DURING SHIFT. NO CHANGES IN MENTATION. BREATHING EVEN AND UNLABORED. MILD EXACERBATION DURING REPOSITIONING BUT RETURNED TO BASELINE. ON 2L/MIN VIA NASAL CANNULA. SATURATION GREATER THAN 100 PERCENT. WOUND CARE DONE ORDERED. PAIN ASSESSMENTS DONE AND PAIN MEDICATION PROVIDED PRN PER MD ORDER. ALL NEEDS ATTENDED. CALL LIGHT WITHIN REACH.
[2022-01-23 07:10] LABS: ALBUMIN 1.5 g/dL (3.4-5.0); ALKALINE PHOSPHATASE 121 U/L (46-116); ASPARTATE AMINOTRANSFERASE 14 U/L (15-37); BILIRUBIN,TOTAL 1.4 mg/dL (0.2-1.0); CALCIUM, SERUM 8.2 mg/dL (8.5-10.1); CARBON DIOXIDE 20 mmol/L (21-32); CHLORIDE 105 mmol/L (98-107); CREATININE 0.8 mg/dL (0.6-1.3); GLUCOSE 73 mg/dL (74-106); MAGNESIUM 1.8 mg/dL (1.8-2.4); POTASSIUM 4.6 mmol/L (3.5-5.1); SODIUM SERUM 131 mmol/L (136-145); TOTAL PROTEIN, SERUM 6.6 g/dL (6.4-8.2); UREA NITROGEN, BLOOD 11 mg/dL (7-18)
[2022-01-23 07:30] LABS: BASOPHILS # (AUTO) 0.1 K/uL (0.0-0.2); BASOPHILS % (AUTO) 0.7 % (0.0-2.0); EOSINOPHILS % (AUTO) 1.2 % (0.0-6.0); HEMATOCRIT 22 % (39-51); HEMOGLOBIN 7.1 g/dL (13.5-17.5); LYMPHOCYTES # (AUTO) 1.6 K/uL (0.8-4.8); LYMPHOCYTES % (AUTO) 13.8 % (20.0-44.0); MEAN CORPUSCULAR HGB CONC 33 g/dl (31.0-36.0); MEAN CORPUSCULAR VOLUME 102 fL (80-96); MONOCYTES # (AUTO) 1.1 K/uL (0.1-1.30); MONOCYTES % (AUTO) 9.2 % (2.0-12.0); NEUTROPHILS # (AUTO) 8.7 K/uL (1.8-8.9); NEUTROPHILS % (AUTO) 75.1 % (43.0-81.0); PLATELET COUNT (AUTO) 194 K/uL (150-450); RED BLOOD CELL COUNT(AUTO) 2.12 MIL/uL (4.5-6.0); WHITE BLOOD COUNT (AUTO) 11.6 K/uL (4.3-11.0)
--- NOTE | 2022-01-23 07:30 | NUR ---
RN OPENING NOTE RECEIVED PATIENT IN BED, AOX4 NOT IN RESPIRATORY DISTRESS O2 SATING 98% ON 2LPM VIA NC WITH BREATHING EVEN AND UNLABORED. WITH IV NS AT R WRIST INFUSING WELL AT 70CC/HR. VITAL SIGNS TAKEN WNL. ALL SAFETY MEASURES NOTED AND ACCOUNTED FOR WITH BED LOCKED IN LOWEST POSITION AND WHEELS LOCKED IN PLACE, CALL LIGHT WITHIN REACH, WILL CONTINUE TO MONITOR.
[2022-01-23 08:00] VITALS: BP 108/61
[2022-01-23] MEDS: BUDESONIDE RESPULE INH 0.5 MG/2 ML AMPUL.NEB NEB SCH (08:31)
[2022-01-23] MEDS: CEFEPIME 2 GM in IV D5W 100 ML IV SCH ×3 (08:49)
[2022-01-23] MEDS: FOLIC ACID 1 MG TABLET PO SCH (08:50)
[2022-01-23] MEDS: MIDODRINE HCL (5MG) 5 MG TABLET PO SCH ×2 (08:50→12:06)
[2022-01-23] MEDS: SPIRONOLACTONE 25 MG TABLET PO SCH (08:50)
[2022-01-23] MEDS: PANTOPRAZOLE 40 MG TABLET.DR PO SCH (08:50)
[2022-01-23] MEDS: ENOXAPARIN SODIUM 40 MG/0.4 ML DISP.SYRIN SQ SCH (08:52)
[2022-01-23] MEDS: Z GUARD REMEDY 4 OZ OINT TP SCH (09:06)
[2022-01-23 09:07] LABS: ALANINE AMINOTRANSFERASE < 6 U/L (12-78)
[2022-01-23 12:00] VITALS: BP 107/67
[2022-01-23 12:06] VITALS: BP 107/67
[2022-01-23] MEDS: LEVOFLOXACIN (250MG) 250 MG TABLET PO SCH (12:06)
--- NOTE | 2022-01-23 14:29 | NUR ---
TREE TRIMMER NOTE PT REMAINED STABLE THROUGHOUT SHIFT. PATIENT IN BED, AOX4 NOT IN RESPIRATORY DISTRESS O2 SATING 98% ON 2LPM VIA NC WITH BREATHING EVEN AND UNLABORED. IV REMOVED FULLY INTACT. PT S/P CHEST TUBE IN UPPER RIGHT BACK AND FRONT RIGHT CHEST. FULLY BANDAGED WITH OCCLUSIVE DRESSING. VITAL SIGNS TAKEN WNL. PT CLEARED FOR DISCHARGE PER MD ORDER. PT UNDERSTANDS PLAN OF CARE AND IS COOPERATING. PT TO BE D/C'D TO [facility]. REPORT GIVEN TO CINDY. PT TO BE TRANSPORTED VIA AMBULANCE. PT D/C'D TO AMBULANCE CARE IN STABLE CONDITION.
== END 2022-01-23 14:11 | DRG 720 ==
LOC: ER 03:00 → TRANSITION 08:51 → TELE1 10:25 → TELE-TD 17:38 → TELE1 01-21 14:35
PROVIDERS: ADMIT Student in an Organized Health Care Education/Training Program
PROC: 30233N1 Transfusion of Nonautologous Red Blood Cells into Peripheral Vein, Percutaneous Approach (ICD-10-PCS; principal; 2022-01-12)
PROC: 0W9B30Z Drainage of Left Pleural Cavity with Drainage Device, Percutaneous Approach (ICD-10-PCS; 2022-01-16)
DX: A41.9 Sepsis, unspecified organism (principal); J96.01 Acute respiratory failure with hypoxia; N17.0 Acute kidney failure with tubular necrosis; J86.9 Pyothorax without fistula; E43 Unspecified severe protein-calorie malnutrition; J94.8 Other specified pleural conditions; E87.2 Acidosis; E22.2 Syndrome of inappropriate secretion of antidiuretic hormone; J18.9 Pneumonia, unspecified organism; E27.40 Unspecified adrenocortical insufficiency; R18.8 Other ascites; K76.0 Fatty (change of) liver, not elsewhere classified; E88.09 Other disorders of plasma-protein metabolism, not elsewhere classified; Z20.822 Contact with and (suspected) exposure to COVID-19; M10.9 Gout, unspecified; Z87.891 Personal history of nicotine dependence; E87.6 Hypokalemia; E83.42 Hypomagnesemia; D53.9 Nutritional anemia, unspecified; E86.1 Hypovolemia; E03.9 Hypothyroidism, unspecified; K40.20 Bilateral inguinal hernia, without obstruction or gangrene, not specified as recurrent; K57.30 Diverticulosis of large intestine without perforation or abscess without bleeding; I50.9 Heart failure, unspecified; J90 Pleural effusion, not elsewhere classified
CPT/HCPCS: 36415; 36600; 71045-TC; 71250-TC; 75989-TC; 76770-TC; 80048-TC; 80053-TC; 80076-TC; 80202-TC; 82140-TC; 82533; 82607-TC; 82728-TC; 82803-TC; 83540-TC; 83605-TC; 83735-TC; 83880; 84100-TC; 84132-TC; 84295-TC; 84443-TC; 84484-TC; 85025-TC; 85730-TC; 86850-TC; 87040-TC; 87070-TC; 87081-TC; 89051-TC; 93307-TC; 94799-TC; 97110-TC; 97112-TC; 97116-TC; 97530-TC; A4216; A4217; A6253; A6403; C9803; G0378; J0456; J0692; J0696; J1650; J1940; J1956; J2270; J2405; J3370; J3475; J3480; J3490; J7030; J7050; J7060; P9016; P9047; U0003

== ENCOUNTER 2022-04-29 14:13 | Inpatient (IN) | payer OTHER ==
[~2022-04-29] VITALS: Ht 177.8 cm; Wt 66.7 kg
[2022-04-29] VITALS (11 sets, daily range): BP systolic 89–112; BP diastolic 37–62
[~2022-04-29 14:13] MED LIST: ALBU18HF2 IH; FLUT12AE5 INH; PANT40TA49 PO; PROP10TA68 PO; SPIR25TA6 PO
--- NOTE | 2022-04-29 14:25 | NUR ---
BIBRA W/ C/O SOB AND CHEST DISCOMFORT X3 DAYS. "FEELING WEAK TODAY" PER PT. HYPOTENSIVE MANAGER PSYCHIATRY AND WAS GIVEN IV NS APPROX 300ML. TO ER BED 1.
--- NOTE | 2022-04-29 14:42 | NUR ---
DR COREA AT BEDSIDE W/ PT.
--- NOTE | 2022-04-29 14:42 | NUR ---
Ariel wiseman in [facility] - 04/29/22 [address] COREA AT [facility] FOR [facility]
--- NOTE | 2022-04-29 14:59 | NUR ---
PT TAKEN TO RADIOLOGY
[2022-04-29 15:02] LABS: BASOPHILS # (AUTO) 0.1 K/uL (0.0-0.2); LYMPHOCYTES # (AUTO) 1.7 K/uL (0.8-4.8)
--- NOTE | 2022-04-29 15:07 | NUR ---
PT RETURNED FROM RADIOLOGY
[2022-04-29 15:14] LABS: CALCIUM, SERUM 7.9 mg/dL (8.5-10.1); CARBON DIOXIDE 24 mmol/L (21-32); CHLORIDE 88 mmol/L (98-107); CREATININE 1.8 mg/dL (0.6-1.3); GLUCOSE 132 mg/dL (74-106); POTASSIUM 3.4 mmol/L (3.5-5.1); SERUM AMMONIA 67 umol/L (11-32); SODIUM SERUM 128 mmol/L (136-145); UREA NITROGEN, BLOOD 58 mg/dL (7-18)
[2022-04-29 15:15] LABS: BASOPHILS % (AUTO) 0.5 % (0.0-2.0); EOSINOPHILS % (AUTO) 1.5 % (0.0-6.0); LYMPHOCYTES % (AUTO) 10.2 % (20.0-44.0); MEAN CORPUSCULAR HGB CONC 33 g/dl (31.0-36.0); MEAN CORPUSCULAR VOLUME 104 fL (80-96); MONOCYTES % (AUTO) 5.8 % (2.0-12.0); NEUTROPHILS # (AUTO) 14.1 K/uL (1.8-8.9); PLATELET COUNT (AUTO) 207 K/uL (150-450); WHITE BLOOD COUNT (AUTO) 17.1 K/uL (4.3-11.0)
[2022-04-29 15:20] LABS: ALANINE AMINOTRANSFERASE 14 U/L (12-78); ALBUMIN 2.2 g/dL (3.4-5.0); ALCOHOL, BLOOD < 3 mg/dL (0-0); ALKALINE PHOSPHATASE 134 U/L (46-116); ASPARTATE AMINOTRANSFERASE 56 U/L (15-37); BILIRUBIN,DIRECT 0.8 mg/dL (0.0-0.2); BILIRUBIN,TOTAL 1.6 mg/dL (0.2-1.0); TOTAL PROTEIN, SERUM 5.8 g/dL (6.4-8.2)
[2022-04-29 15:21] LABS: RED BLOOD CELL COUNT(AUTO) 1.58 MIL/uL (4.5-6.0)
[2022-04-29 15:22] LABS: HEMOGLOBIN 5.4 g/dL (13.5-17.5)
[2022-04-29 15:23] LABS: HEMATOCRIT 16 % (39-51)
--- NOTE | 2022-04-29 15:34 | NUR ---
COVID TEST COLLECTED AND SENT
[2022-04-29 16:05] LABS: THYROID STIMULATING HORMONE 3.072 uIU/mL (0.358-3.74)
[2022-04-29 17:00] LABS: BAND % (MANUAL) 2 % (0.0-5.0); LYMPHOCYTES % (MANUAL) 8 % (16-48); MONOCYTES % (MANUAL) 2 % (0-11.0); NEUTROPHILS % (MANUAL) 88 (42-76)
[2022-04-29] MEDS ORDERED: ACETAMINOPHEN ES 500 MG TABLET ONE (17:19)
[2022-04-29] MEDS ORDERED: ACETAMINOPHEN ES 500 MG TABLET PO ONE (17:30)
--- NOTE | 2022-04-29 17:31 | NUR ---
BLOOD TRANSFUSION CONSENT SIGNED BY PT. DR. COREA SIGNED BT CONSENT.
[2022-04-29] MEDS ORDERED: ONDANSETRON HCL/PF 4 MG/2 ML VIAL ONE (17:33)
--- NOTE | 2022-04-29 17:44 | NUR ---
PANEL ON-CALL PAGED AGAIN
--- NOTE | 2022-04-29 17:50 | NUR ---
REPORT GIVEN TO ETELVINA KING FOR VALERIA
[2022-04-29] MEDS ORDERED: ONDANSETRON HCL/PF 4 MG/2 ML VIAL IVP ONE (18:00)
[2022-04-29] MEDS ORDERED: PANTOPRAZOLE 80 MG in IV NS 0.9% 100 ML IV ONE (18:00)
[2022-04-29] MEDS ORDERED: OCTREOTIDE 50 MCG in IV NS 0.9% 50 ML IJ ONE (18:00)
[2022-04-29] MEDS ORDERED: OCTREOTIDE 50 MCG/ML AMPUL IV ONE (18:00)
[2022-04-29] MEDS ORDERED: IV NS 0.9% 1,000 ML BAG IV ONE (18:00)
[2022-04-29] MEDS ORDERED: OCTREOTIDE 1,250 MCG in IV NS 0.9% 250 ML IV ONE (18:00)
--- NOTE | 2022-04-29 18:05 | NUR ---
VS TAKEN AND RECORDED PRIOR TO BLOOD TRANSFUSION. BLOOD PRODUCT VERIFIED WITNESSED BY ANOTHER RN, KARL.
--- NOTE | 2022-04-29 18:20 | NUR ---
NO TRANSFUSION REACTION NOTED 15-MINS INTO INFUSION OF BLOOD PRODUCT. PT HAS NO COMPLAINT OF FLANK PAIN NOR CHILLS. INCREASED RATE TO 95ML/HR.
--- NOTE | 2022-04-29 18:51 | NUR ---
PT TRANSFERRED TO UNIT VIA [place] ACLS PROTOCOL. WARM HANDOFF GIVEN TO NAVI FEED WEIGHER.
--- NOTE | 2022-04-29 19:00 | NUR ---
ICU/RN PT ADMITTED FROM ER .AWAKE ,ALERT-4.ON ROOM AIR,SAT O2-100%.V/S STABLE,AFEBRILE.NO PAIN REPORTED AT THIS TIME.IV INFUSING WITH SANDOSTATIN DRIP,AND PRBC .RIGHT AND LEFT AC SANDEEP#20. WAS VOMIT IN ER WITH DARK BLOOD.PT USE URINAL.
--- NOTE | 2022-04-29 19:10 | NUR ---
RN OPENING NOTES RECEIVED PATIENT ON BED, A/O X 4, ABLE TO MAKE NEEDS KNOWN, ON ROOM AIR SATING AT 99%. RESPIRATORY EVEN AND UNLABORED, NO SOB NOTED, NO S/S OF DISTRESS NOTED. PATIENT WITH LAC #20 AND RAC # 20 PERIPHERAL LINE, FLUSHED WITH NS, NO S/S OF INFILTRATION NOTED AT SITE. SANDOSTATIN DRIP @ 50MCG/HR. ALL SAFETY MEASURE PROVIDED. BED IN LOWEST POSITION, LOCKED. CONTINUE TO MONITOR
[2022-04-29] MEDS ORDERED: Z GUARD REMEDY 4 OZ OINT TP PRN (20:00)
[2022-04-29] MEDS ORDERED: ALBUTEROL FS 2.5 MG/0.5 ML VIAL.NEB HHN PRN (20:00)
[2022-04-29] MEDS ORDERED: ONDANSETRON HCL/PF 4 MG/2 ML VIAL IVP PRN (20:00)
[2022-04-29] MEDS: OCTREOTIDE 1,250 MCG in IV NS 0.9% 247.5 ML IV PRN (20:00)
[2022-04-29] MEDS ORDERED: ACETAMINOPHEN 325 MG TABLET PO PRN (20:00)
--- NOTE | 2022-04-29 20:26 | NUR ---
RN NOTES BLOOD TRANSFUSION DONE, NO ADVERSE REACTION NOTED, V/S TEMP- 98,1 F, P-91, R-15, [id number], BP- 97/54.
[2022-04-29] MEDS: PANTOPRAZOLE 40 MG VIAL IV SCH (20:36)
[2022-04-29] MEDS: ALBUMIN 25% 25 GM in PREMIX 1 EA IV SCH (20:58)
--- NOTE | 2022-04-29 21:00 | NUR ---
RN NOTES STARTED IVF LR 1L @ 100 ML/HR. TOLERATED WELL.
[2022-04-29] MEDS: IV LR 1000 ML 1,000 ML IV PRN (21:01)
--- NOTE | 2022-04-29 22:40 | NUR ---
RN NOTES AIDA DELAROSA AT BEDSIDE
[2022-04-29] MEDS ORDERED: IV NS 0.9% 500 ML IV PRN (23:00)
[2022-04-29] MEDS ORDERED: NOREPINEPHRINE 8 MG in IV NS 0.9% 242 ML IV PRN ×2 (23:00→23:30)
[2022-04-29 23:12] LABS: MEAN CORPUSCULAR HGB CONC 33 g/dl (31.0-36.0); MEAN CORPUSCULAR VOLUME 102 fL (80-96); PLATELET COUNT (AUTO) 107 K/uL (150-450); WHITE BLOOD COUNT (AUTO) 10.9 K/uL (4.3-11.0)
[2022-04-29] MEDS: MORPHINE SULFATE INJ 2 MG/ML DISP.SYRIN IV PRN (23:15)
[2022-04-29 23:43] LABS: HEMATOCRIT 17 % (39-51); HEMOGLOBIN 5.8 g/dL (13.5-17.5)
[2022-04-30] VITALS (42 sets, daily range): BP systolic 86–126; BP diastolic 43–67
--- NOTE | 2022-04-30 | NUR ---
RN NOTES NOTIFIED RUTHY POWELL DNP, REGARDING HGB-5.8 AND HCT- 17 WITH NEW ORDER 2 UNITS PRBC NOTED AND CARRIED OUT.
[2022-04-30] MEDS: LORAZEPAM INJ 2 MG/ML VIAL IV PRN ×2 (00:58→12:45)
--- NOTE | 2022-04-30 01:24 | NUR ---
RN NOTES BLOOD TRANSFUSION STARTED 1 UNIT PRBC, T-98.5, P-90, R-26, BP-93/51.
--- NOTE | 2022-04-30 01:39 | NUR ---
RN NOTES BT NO ADVERSE REACTION NOTED, T-98.7, P-82, R-12, BP-87/50, CONTINUE TO MONITOR
--- NOTE | 2022-04-30 02:08 | NUR ---
RN NOTES BT NO ADVERSE REACTION NOTED, T-98.0, P-82, R-14, BP-88/43, CONTINUE TO MONITOR
[2022-04-30] MEDS: ALBUMIN 25% 25 GM in PREMIX 1 EA IV SCH ×3 (02:17→13:12)
--- NOTE | 2022-04-30 04:32 | NUR ---
RN NOTES BLOOD TRANSFUSION DONE, RECEIVED 1 UNIT PRBC. NO ADVERSE REACTION NOTED, V/S TEMP- 98.3 F, P-78, R-17, BP- 110/59.
--- NOTE | 2022-04-30 04:38 | NUR ---
RN NOTES BLOOD TRANSFUSION STARTED 1 UNIT PRBC, T-98.5, P-75, R-13, BP- 104/67.
[2022-04-30] MEDS: MORPHINE SULFATE INJ 2 MG/ML DISP.SYRIN IV PRN ×4 (05:04→22:55)
[2022-04-30] MEDS: IV LR 1000 ML 1,000 ML IV PRN (06:49)
[2022-04-30] MEDS ORDERED: PANTOPRAZOLE 40 MG TABLET.DR PO SCH (07:30)
[2022-04-30] MEDS: FLUTICASONE/VILANTEROL 1 EACH BLST.W.DEV IH SCH (07:53)
[2022-04-30] MEDS: PANTOPRAZOLE 40 MG VIAL IV SCH ×2 (07:53→20:57)
--- NOTE | 2022-04-30 08:00 | NUR ---
RN NOTES RECEIVED PATIENT RESTING IN THE BED GETTING SECOND UNITS OF BLOOD TRANSFUSION, BP-95/55, P-89. PATIENT WAS COMPLAINING OF PAIN ON BILATERAL KNEES PAIN 5/10 PER PAIN SCALE. PATIENT NPO, PER HOSPITALIST PATIENT NEED EGD. IV ACCESS ON RIGHT, AND LEFT AC AREA INTACT, ALSO INFUSING LR @100 ML/HR INTACT. DUE MEDICATION ADMINISTERED. PATIENT USING URINAL. CALL LIGHT WITHIN TO REACH,WILL FOLLOW UP.
--- NOTE | 2022-04-30 08:18 | NUR ---
RN NOTES FINISHED BLOOD TRANSFUSION AT THIS TIME , PATIENT STABLE ROOM AIR, NO RESPIRATORY DISTRESS, VS TAKEN BP 95/55, P-87,R-20, T-98.2. PATIENT REFUSED PAIN AT THIS TIME. DUE MEDICATION ADMINISTERED. WILL FOLLOW UP.
[2022-04-30] MEDS: SPIRONOLACTONE 25 MG TABLET PO SCH ×2 (09:00→16:19)
[2022-04-30] MEDS: PROPRANOLOL HCL 10 MG TABLET PO SCH ×2 (09:00→16:18)
--- NOTE | 2022-04-30 10:04 | NUR ---
RN NOTES ADMINISTERED MORPHINE SULFATE 2 MG/ML IV PUSH FOR GENERALIZED PAIN 04/07 PER PATIRENT REQUEST BP 100/53, P-89, R-.15.
[2022-04-30 10:27] LABS: BASOPHILS # (AUTO) 0.1 K/uL (0.0-0.2); BASOPHILS % (AUTO) 0.9 % (0.0-2.0); EOSINOPHILS % (AUTO) 2.4 % (0.0-6.0); HEMATOCRIT 23 % (39-51); HEMOGLOBIN 8.1 g/dL (13.5-17.5); LYMPHOCYTES # (AUTO) 1.5 K/uL (0.8-4.8); MEAN CORPUSCULAR HGB CONC 35 g/dl (31.0-36.0); MEAN CORPUSCULAR VOLUME 94 fL (80-96); MONOCYTES # (AUTO) 0.5 K/uL (0.1-1.30); MONOCYTES % (AUTO) 6.6 % (2.0-12.0); NEUTROPHILS # (AUTO) 5.2 K/uL (1.8-8.9); NEUTROPHILS % (AUTO) 70.1 % (43.0-81.0); PLATELET COUNT (AUTO) 111 K/uL (150-450); RED BLOOD CELL COUNT(AUTO) 2.44 MIL/uL (4.5-6.0); WHITE BLOOD COUNT (AUTO) 7.4 K/uL (4.3-11.0)
[2022-04-30 10:43] LABS: ALBUMIN 3.1 g/dL (3.4-5.0); BILIRUBIN,TOTAL 2.8 mg/dL (0.2-1.0); CALCIUM, SERUM 7.6 mg/dL (8.5-10.1); CREATININE 1.5 mg/dL (0.6-1.3); PHOSPHORUS 2.6 mg/dL (2.5-4.9); POTASSIUM 2.9 mmol/L (3.5-5.1); TOTAL PROTEIN, SERUM 6.2 g/dL (6.4-8.2)
[2022-04-30 11:02] LABS: MAGNESIUM 1.2 mg/dL (1.8-2.4)
[2022-04-30] MEDS: CEFTRIAXONE 1 G in IV D5W 50 ML IV SCH (11:44)
[2022-04-30] MEDS: Magnesium 1GM/D5W 100ML PREMIX 100 ML IV SCH ×2 (11:47→12:43)
[2022-04-30] MEDS: POTASSIUM CL. PREMIX PERIPHER. 50 ML IV SCH ×5 (11:58→16:20)
--- NOTE | 2022-04-30 12:45 | NUR ---
RN NOTES ADMINISTERED ATIVAN 0.5 ML IV PUSH FOR ANXIETY PER PATIENT REQUEST BP-106/61, P-77. PATIENT GET MIDLINE INSERTED ON DELL INTACT. WILL MONITORING.
[2022-04-30] MEDS: OCTREOTIDE 1,250 MCG in IV NS 0.9% 247.5 ML IV PRN (16:20)
[2022-04-30 17:28] LABS: HEMATOCRIT 25 % (39-51); HEMOGLOBIN 8.5 g/dL (13.5-17.5); MEAN CORPUSCULAR HGB CONC 34 g/dl (31.0-36.0); MEAN CORPUSCULAR VOLUME 96 fL (80-96); PLATELET COUNT (AUTO) 121 K/uL (150-450); RED BLOOD CELL COUNT(AUTO) 2.56 MIL/uL (4.5-6.0); WHITE BLOOD COUNT (AUTO) 6.9 K/uL (4.3-11.0)
--- NOTE | 2022-04-30 18:10 | NUR ---
rn notes administered morphine sulfate 2mg/ml iv push for pain generalized 04/07 per patient request bp 108/64, p-77, r-15. pm care done. infusing Sandostatin 50 mcg/kg/ min on DELL midline intact. due medication administered. call light within to reach. will follow up.
--- NOTE | 2022-04-30 20:31 | NUR ---
arboriculturist. initial assessment. received the pt rest in bed. sleeping. lethargic. oxygen 2l via n/c. sat 97%. no acute distress noted. horticulture/floriculture teacher showing nsr. iv rt upper arm mid line. sandostatin running. hob elevated. pt is npo. will continue to monitor vitals.
[2022-04-30 23:16] LABS: HEMATOCRIT 26 % (39-51); HEMOGLOBIN 8.9 g/dL (13.5-17.5); MEAN CORPUSCULAR HGB CONC 35 g/dl (31.0-36.0); MEAN CORPUSCULAR VOLUME 95 fL (80-96); PLATELET COUNT (AUTO) 130 K/uL (150-450); RED BLOOD CELL COUNT(AUTO) 2.68 MIL/uL (4.5-6.0); WHITE BLOOD COUNT (AUTO) 8.3 K/uL (4.3-11.0)
[2022-05-01] VITALS (24 sets, daily range): BP systolic 85–132; BP diastolic 49–83
[2022-05-01] MEDS: LORAZEPAM INJ 2 MG/ML VIAL IV PRN ×4 (02:02→22:21)
--- NOTE | 2022-05-01 02:38 | NUR ---
AUDIO TAPE LIBRARIAN, PT HAS ANXIETY DISORDER. PT REQUESTED ATIVAN, GIVEN BY MD PALM
[2022-05-01] MEDS: MORPHINE SULFATE INJ 2 MG/ML DISP.SYRIN IV PRN ×3 (03:14→23:26)
[2022-05-01 04:14] LABS: BASOPHILS % (AUTO) 0.7 % (0.0-2.0); EOSINOPHILS % (AUTO) 2.7 % (0.0-6.0); HEMATOCRIT 23 % (39-51); HEMOGLOBIN 8.1 g/dL (13.5-17.5); LYMPHOCYTES # (AUTO) 0.9 K/uL (0.8-4.8); LYMPHOCYTES % (AUTO) 13.7 % (20.0-44.0); MEAN CORPUSCULAR HGB CONC 35 g/dl (31.0-36.0); MEAN CORPUSCULAR VOLUME 95 fL (80-96); MONOCYTES # (AUTO) 0.5 K/uL (0.1-1.30); MONOCYTES % (AUTO) 7.8 % (2.0-12.0); NEUTROPHILS # (AUTO) 4.8 K/uL (1.8-8.9); NEUTROPHILS % (AUTO) 75.1 % (43.0-81.0); PLATELET COUNT (AUTO) 140 K/uL (150-450); RED BLOOD CELL COUNT(AUTO) 2.47 MIL/uL (4.5-6.0); WHITE BLOOD COUNT (AUTO) 6.4 K/uL (4.3-11.0)
--- NOTE | 2022-05-01 04:16 | NUR ---
travel registered nurse nicu. am care given. remaining same sandostatin running. hob elevated. iv rt upper arm mid line. will continue to monitor vitals
[2022-05-01 04:32] LABS: ALBUMIN 3.2 g/dL (3.4-5.0); CALCIUM, SERUM 7.9 mg/dL (8.5-10.1); CREATININE 1.1 mg/dL (0.6-1.3); MAGNESIUM 1.7 mg/dL (1.8-2.4); POTASSIUM 3.3 mmol/L (3.5-5.1); TOTAL PROTEIN, SERUM 6.4 g/dL (6.4-8.2)
[2022-05-01] MEDS: PANTOPRAZOLE 40 MG VIAL IV SCH ×2 (07:38→19:25)
[2022-05-01] MEDS: FLUTICASONE/VILANTEROL 1 EACH BLST.W.DEV IH SCH (08:22)
[2022-05-01] MEDS: SPIRONOLACTONE 25 MG TABLET PO SCH ×2 (09:00→16:12)
[2022-05-01] MEDS: PROPRANOLOL HCL 10 MG TABLET PO SCH ×2 (09:00→16:12)
[2022-05-01] MEDS: CEFTRIAXONE 1 G in IV D5W 50 ML IV SCH (09:19)
[2022-05-01] MEDS: Magnesium 1GM/D5W 100ML PREMIX 100 ML IV SCH ×2 (10:22→11:49)
[2022-05-01] MEDS: POTASSIUM CL. PREMIX PERIPHER. 50 ML IV SCH ×2 (10:30→11:49)
[2022-05-01] MEDS: OCTREOTIDE 1,250 MCG in IV NS 0.9% 247.5 ML IV PRN (17:31)
--- NOTE | 2022-05-01 19:40 | NUR ---
ICU/PODIATRIST ASSISTANT PT COMPLAINED ABOUT PAIN TO ABDOMEN WAS 10/, ASKED FOR PAIN MEDICATION WHICH WAS MORPHINE 2MG IVP. CHARGE NURSE MADE AWARE OF THIS, WHICH WAS GIVEN. CALL LIGHT WITHIN REACH. WILL CONTINUE TO MONITOR THIS PT AND HIS PAIN.
--- NOTE | 2022-05-01 22:40 | NUR ---
ICU/SECURITY TRAINER PT COMPLAINED THAT HE WAS FEELING SOME ANXIETY, NOTIFED THE CHARGE NURSE WHO WAS ABLE TO GIVE PRN ATIVAN 1MG IVP FOR ANXIETY. CALL LIGHT WITHIN REACH. WILL MONITOR THIS PT'S ANXIETY.
[2022-05-02] VITALS (24 sets, daily range): BP systolic 87–139; BP diastolic 45–82
--- NOTE | 2022-05-02 00:05 | NUR ---
ICU/FIBER ANALYST PT COMPLAINED ABOUT PAIN TO ABDOMEN WAS 10/10, ASKED FOR PAIN MEDICATION WHICH WAS MORPHINE 2MG IVP. CHARGE NURSE MADE AWARE OF THIS, MORPHINE PRN WAS GIVEN. CALL LIGHT WITHIN REACH. WILL CONTINUE TO MONITOR THIS PT AND HIS PAIN.
--- NOTE | 2022-05-02 00:49 | NUR ---
ICU/LAST REPAIRER HELPER PT NOW APPEARS TO BE SLEEPING COMFORTABLE. CALL LIGHT WITHIN REACH NO DISTRESS SEEN.
[2022-05-02] MEDS: MORPHINE SULFATE INJ 2 MG/ML DISP.SYRIN IV PRN ×2 (02:17→20:22)
--- NOTE | 2022-05-02 02:30 | NUR ---
ICU/SOCIAL WORKER ASSISTANT PT COMPLAINED ABOUT PAIN TO ABDOMEN WAS 10/10, ASKED FOR PAIN MEDICATION WHICH WAS MORPHINE 2MG IVP. CHARGE NURSE MADE AWARE OF THIS, MORPHINE PRN WAS GIVEN. CALL LIGHT WITHIN REACH. WILL CONTINUE TO MONITOR THIS PT AND HIS PAIN.
[2022-05-02 04:18] LABS: BASOPHILS # (AUTO) 0.1 K/uL (0.0-0.2); BASOPHILS % (AUTO) 1.1 % (0.0-2.0); EOSINOPHILS % (AUTO) 3.3 % (0.0-6.0); HEMATOCRIT 24 % (39-51); HEMOGLOBIN 8.1 g/dL (13.5-17.5); LYMPHOCYTES # (AUTO) 1.2 K/uL (0.8-4.8); LYMPHOCYTES % (AUTO) 19.2 % (20.0-44.0); MEAN CORPUSCULAR HGB CONC 34 g/dl (31.0-36.0); MEAN CORPUSCULAR VOLUME 97 fL (80-96); MONOCYTES # (AUTO) 0.9 K/uL (0.1-1.30); MONOCYTES % (AUTO) 14.2 % (2.0-12.0); NEUTROPHILS % (AUTO) 62.2 % (43.0-81.0); PLATELET COUNT (AUTO) 152 K/uL (150-450); RED BLOOD CELL COUNT(AUTO) 2.44 MIL/uL (4.5-6.0); WHITE BLOOD COUNT (AUTO) 6.5 K/uL (4.3-11.0)
[2022-05-02 04:27] LABS: ALBUMIN 2.9 g/dL (3.4-5.0); BILIRUBIN,TOTAL 1.6 mg/dL (0.2-1.0); CALCIUM, SERUM 7.7 mg/dL (8.5-10.1); CREATININE 0.8 mg/dL (0.6-1.3); MAGNESIUM 1.9 mg/dL (1.8-2.4); POTASSIUM 3.3 mmol/L (3.5-5.1); TOTAL PROTEIN, SERUM 6.3 g/dL (6.4-8.2)
[2022-05-02] MEDS: LORAZEPAM INJ 2 MG/ML VIAL IV PRN ×4 (04:44→17:30)
--- NOTE | 2022-05-02 05:02 | NUR ---
ICU/INSURANCE CLAIMS REPRESENTATIVE PT COMPLAINED THAT HE WAS FEELING SOME ANXIETY, NOTIFED THE CHARGE NURSE WHO WAS ABLE TO GIVE PRN ATIVAN 1MG IVP FOR ANXIETY. CALL LIGHT WITHIN REACH. WILL MONITOR THIS PT'S ANXIETY.
--- NOTE | 2022-05-02 07:30 | NUR ---
RN NOTES PT FOUND SUPINE LYING ON R SHOULDER, APPEARS TO BE SLEEPING, FLACC = 0 AND BREATHING IS EVEN AND UNLABORED 2L O2 NC. R UA ML IS CURRENTLY PATIENT AND INTACT, SALES FINANCIAL ANALYST REPORTS EDUCATING PT ON IMPORTANCE OF MAINTAINING MIDLINE. RN WILL CONTINUE CARE PLAN AND ANTICIPATE NEEDS. SAFETY MEASURES IN PLACE, BED LOCKED AND IN LOWEST POSITION, SIDE RAILS UPX2, CALL LIGHT WITHIN REACH, BED ALARM ARMED.
[2022-05-02] MEDS: PANTOPRAZOLE 40 MG VIAL IV SCH ×2 (08:41→20:22)
[2022-05-02] MEDS: FLUTICASONE/VILANTEROL 1 EACH BLST.W.DEV IH SCH (08:42)
[2022-05-02] MEDS: SPIRONOLACTONE 25 MG TABLET PO SCH ×2 (09:00→17:00)
[2022-05-02] MEDS: PROPRANOLOL HCL 10 MG TABLET PO SCH ×2 (09:00→17:00)
[2022-05-02] MEDS: CEFTRIAXONE 1 G in IV D5W 50 ML IV SCH (10:52)
[2022-05-02] MEDS: POTASSIUM CL. PREMIX PERIPHER. 50 ML IV SCH ×2 (10:53→11:53)
[2022-05-02] MEDS: IV D5/0.45 NACL 1,000 ML IV PRN (11:10)
[2022-05-02] MEDS: OCTREOTIDE 1,250 MCG in IV NS 0.9% 247.5 ML IV PRN (18:01)
--- NOTE | 2022-05-02 19:05 | NUR ---
RN NOTES PT FOUND SEMI FOWLERS, WATCHING TV, PT ENDORSES NO PAIN AND BREATHING IS EVEN AND UNLABORED 2L O2 NC. R UA ML IS CURRENTLY PATIENT AND INTACT. SBAR AND REPORT GIVEN TO ASSISTANT SALES DIRECTOR RN, ALL QUESTIONS ANSWERED. SAFETY MEASURES IN PLACE, BED LOCKED AND IN LOWEST POSITION, SIDE RAILS UPX2, CALL LIGHT WITHIN REACH, BED ALARM ARMED. PT ENDORSED IN STABLE CONDITION FOR VALERIA.
--- NOTE | 2022-05-02 19:25 | NUR ---
ICU/FAMILY SERVICES MANAGER RECEIVED REPORT FROM DAY NURSE. SEE FLOWSHEET FOR ASSESSMENT. PT IS CURRENTLY NPO FOR X2 DAYS NOW WAITING FOR EEG, AWARE OF THIS. CALL LIGHT WITHIN REACH.
--- NOTE | 2022-05-02 20:30 | NUR ---
ICU/IRRIGATION EQUIPMENT MECHANIC PT COMPLAINED ABOUT PAIN TO ABDOMEN WAS 8/, ASKED FOR PAIN MEDICATION WHICH WAS MORPHINE 2MG IVP. CHARGE NURSE MADE AWARE OF THIS, WHICH WAS GIVEN. CALL LIGHT WITHIN REACH. WILL CONTINUE TO MONITOR THIS PT AND HIS PAIN.
[2022-05-02] MEDS: MIRTAZAPINE 15 MG TABLET PO SCH (22:02)
--- NOTE | 2022-05-02 22:06 | NUR ---
ICU/STRUCTURAL ANALYST REPORT GIVEN TO NIGHT FERNANDO MOSQUERA FOR CONTINUITY OF CARE.
[2022-05-03] VITALS (16 sets, daily range): BP systolic 89–132; BP diastolic 47–87
[2022-05-03] MEDS: IV D5/0.45 NACL 1,000 ML IV PRN (00:08)
[2022-05-03] MEDS: MORPHINE SULFATE INJ 2 MG/ML DISP.SYRIN IV PRN ×5 (01:43→23:27)
[2022-05-03] MEDS: LORAZEPAM INJ 2 MG/ML VIAL IV PRN ×2 (03:23→20:21)
[2022-05-03 04:25] LABS: BASOPHILS # (AUTO) 0.1 K/uL (0.0-0.2); EOSINOPHILS % (AUTO) 3.5 % (0.0-6.0); HEMATOCRIT 25 % (39-51); HEMOGLOBIN 8.5 g/dL (13.5-17.5); LYMPHOCYTES # (AUTO) 1.3 K/uL (0.8-4.8); LYMPHOCYTES % (AUTO) 24.2 % (20.0-44.0); MEAN CORPUSCULAR HGB CONC 34 g/dl (31.0-36.0); MEAN CORPUSCULAR VOLUME 99 fL (80-96); MONOCYTES # (AUTO) 0.9 K/uL (0.1-1.30); MONOCYTES % (AUTO) 17.4 % (2.0-12.0); NEUTROPHILS # (AUTO) 2.8 K/uL (1.8-8.9); NEUTROPHILS % (AUTO) 52.9 % (43.0-81.0); PLATELET COUNT (AUTO) 165 K/uL (150-450); RED BLOOD CELL COUNT(AUTO) 2.55 MIL/uL (4.5-6.0); WHITE BLOOD COUNT (AUTO) 5.2 K/uL (4.3-11.0)
[2022-05-03 04:40] LABS: ALBUMIN 2.8 g/dL (3.4-5.0); BILIRUBIN,TOTAL 1.6 mg/dL (0.2-1.0); CALCIUM, SERUM 7.9 mg/dL (8.5-10.1); CREATININE 0.9 mg/dL (0.6-1.3); MAGNESIUM 1.4 mg/dL (1.8-2.4); POTASSIUM 3.5 mmol/L (3.5-5.1); TOTAL PROTEIN, SERUM 6.4 g/dL (6.4-8.2)
[2022-05-03 05:13] LABS: BASOPHILS % (MANUAL) 0 % (0.0-2.0); EOSINOPHILS % (MANUAL) 2 % (0-4); LYMPHOCYTES % (MANUAL) 20 % (16-48); MONOCYTES % (MANUAL) 16 % (0-11.0); NEUTROPHILS % (MANUAL) 62 (42-76)
--- NOTE | 2022-05-03 07:04 | NUR ---
RN Note No significant changes. No episode of N/v. No bleeding noted. No changes in mental status. Patient requested for pain medication and anxiety medications. Administered PRN medications. Assisted with turning and repositioning. Bed low, in locked position. Call light within reach.
--- NOTE | 2022-05-03 07:30 | NUR ---
OPENING NOTE: REPORT RECEIVED FROM MIRIAM DOLAN AND EVELINE KING. ORDERS AND LABS REVIEWED DURING REPORT. PER REPORT PT IS NPO EXCEPT MEDS. AWAITING DR OLIVER TO SEE PATIENT, CONSULTED ON 04/30. PT IS ON IVF PER MD ORDERS. PT CHECKED ON HOURLY AND PRN BY NURSING STAFF.
[2022-05-03] MEDS: SPIRONOLACTONE 25 MG TABLET PO SCH ×2 (08:47→17:14)
[2022-05-03] MEDS: PANTOPRAZOLE 40 MG VIAL IV SCH ×2 (08:47→20:21)
[2022-05-03] MEDS: PROPRANOLOL HCL 10 MG TABLET PO SCH ×2 (08:48→17:14)
[2022-05-03] MEDS: Magnesium 1GM/D5W 100ML PREMIX 100 ML IV SCH ×4 (08:49→17:13)
[2022-05-03] MEDS: FLUTICASONE/VILANTEROL 1 EACH BLST.W.DEV IH SCH (08:51)
[2022-05-03] MEDS ORDERED: FENTANYL PF 100MCG/2ML AMPUL ONE (10:20)
[2022-05-03] MEDS: CEFTRIAXONE 1 G in IV D5W 50 ML IV SCH (11:10)
--- NOTE | 2022-05-03 11:15 | NUR ---
PT LEFT FOR SURGERY TO HAVE AN EGD AT 0958, RETURNED TO ICU AT 1048. NEW ORDERS GIVEN FROM DR. OLIVER.
--- NOTE | 2022-05-03 14:00 | NUR ---
RN NOTES RECEIVED PATIENT FROM ICU NURSE. IN STABLE CONDITION WITH VSS. PATIENT ON RA WITH BREATHING EVEN AND UNLABORED. PLACED PATIENT ON WAITER/WAITRESS FIRST CLASS READING SR 77 BPM. DENIES PAIN AT THIS TIME. DELL MIDLINE INTACT AND PATENT WITH D5 1/5 NS RUNNING @ 70ML/HR. PATIENT ORIENTED TO NEW ROOM. ALL BELONGINGS ACCOUNTED FOR. SAFETY PRECAUTIONS IN PLACE WITH CALL LIGHT WITHIN REACH. WILL CONTINUE TO MONITOR.
--- NOTE | 2022-05-03 15:15 | NUR ---
SS consult: SS Consult requested for homelessness. The pt. is a 51-year-old male patient who is currently admitted to [facility] due to GI Bleed. Upon SS consult, the pt. is Alert & Oriented x 3 and makes poor eye contact. Pt. kept eyes closed throughout interview. The pt. is drowsy appears well-groomed with dysphoric mood & affect. The pt. denies SI/HI and denies hallucinations. The pt.s speech and thought process are WNL. MIKI explored pt.s living situation. Patient states he currently lives at home [[address] [facility] [address]] alone. Pt. is not homeless. MIKI explored pt.s drug & ETOH use. Pt. denies any drug or alcohol use and states he only smokes weed sometimes. MIKI explored pt.s mental health Hx. Pt. denies any Hx. of mental illness. Per pt. he is normally ambulatory and independent with all her ADLs until this admission when he couldnt walk. MIKI explored pt.s support system. Pt. stated friend, Joan Escudero [phone] as support system. Plan: Per pt. he wants to return home [[address] [facility] [address]] when ready for discharge. Pt. stated he does not need any resources at this time.
--- NOTE | 2022-05-03 19:30 | NUR ---
MOLD PRESSER OPENING NOTE PATIENT AWAKE IN BED, ALERT/ORIENTED X 4, PT ABLE TO MAKE NEEDS KNOWN. PATIENT DENIES PAIN AT THIS TIME. PATIENT ON EXTERNAL POWER SYSTEM OPERATOR READING SINUS RHYTHM, HR: 71. DELL MIDLINE INTACT AND INFUSING D5 1/2 NS @ 70 ML/HR. PATIENT STABLE ON RA, NO S/S OF DISTRESS OR SOB NOTED, BREATHING EVEN AND UNLABORED. SAFETY MEASURES IN PLACE: CALL LIGHT WITHIN REACH, SIDE RAILS UP X 2, BED LOCKED IN LOWEST POSITION, BED ALARM ON. WILL CONTINUE TO MONITOR PATIENT
[2022-05-03] MEDS: MIRTAZAPINE 15 MG TABLET PO SCH (22:28)
[2022-05-04] VITALS: BP 95/58
[2022-05-04] MEDS: IV D5/0.45 NACL 1,000 ML IV PRN (00:16)
[2022-05-04] MEDS: LORAZEPAM INJ 2 MG/ML VIAL IV PRN ×2 (02:44→08:39)
[2022-05-04 04:00] VITALS: BP 110/62
[2022-05-04] MEDS: MORPHINE SULFATE INJ 2 MG/ML DISP.SYRIN IV PRN ×2 (04:27→12:27)
[2022-05-04 06:15] LABS: BASOPHILS # (AUTO) 0.1 K/uL (0.0-0.2); BASOPHILS % (AUTO) 2.5 % (0.0-2.0); EOSINOPHILS % (AUTO) 3.4 % (0.0-6.0); HEMATOCRIT 26 % (39-51); HEMOGLOBIN 8.8 g/dL (13.5-17.5); LYMPHOCYTES # (AUTO) 1.1 K/uL (0.8-4.8); LYMPHOCYTES % (AUTO) 22.7 % (20.0-44.0); MEAN CORPUSCULAR HGB CONC 34 g/dl (31.0-36.0); MEAN CORPUSCULAR VOLUME 97 fL (80-96); MONOCYTES # (AUTO) 0.9 K/uL (0.1-1.30); MONOCYTES % (AUTO) 18.6 % (2.0-12.0); NEUTROPHILS # (AUTO) 2.6 K/uL (1.8-8.9); NEUTROPHILS % (AUTO) 52.8 % (43.0-81.0); PLATELET COUNT (AUTO) 163 K/uL (150-450); RED BLOOD CELL COUNT(AUTO) 2.64 MIL/uL (4.5-6.0); WHITE BLOOD COUNT (AUTO) 4.9 K/uL (4.3-11.0)
[2022-05-04 07:20] LABS: CALCIUM, SERUM 7.5 mg/dL (8.5-10.1); CREATININE 0.8 mg/dL (0.6-1.3); MAGNESIUM 1.7 mg/dL (1.8-2.4); POTASSIUM 3.7 mmol/L (3.5-5.1)
--- NOTE | 2022-05-04 07:30 | NUR ---
BOILER FITTER OPENING NOTE RECEIVED PATIENT AWAKE IN BED. PATIENT IS ALERT AND ORIENTED X 4, POLISH SPEAKING ABLE TO MAKE NEEDS KNOWN. NO PAIN NOTED. ON TELE MONITOR READING SR 76. DELL MIDLINE INTACT AND INFUSING D5 1/2 NS @ 70 ML/HR. PATIENT STABLE ON RA, NO S/S OF DISTRESS OR SOB NOTED, BREATHING EVEN AND UNLABORED. ALL SAFETY MEASURES IN PLACE: CALL LIGHT WITHIN REACH, SIDE RAILS UP X 2, BED LOCKED IN LOWEST POSITION, BED ALARM ON. WILL CONTINUE TO MONITOR PATIENT
--- NOTE | 2022-05-04 07:33 | NUR ---
INFRASTRUCTURE MANAGER CLOSING NOTE PATIENT AWAKE IN BED, ALERT/ORIENTED X 4, PT ABLE TO MAKE NEEDS KNOWN. PATIENT DENIES PAIN AT THIS TIME. PATIENT ON EXTERNAL SURETY BOND AGENT READING SINUS RHYTHM, HR: 76. DELL MIDLINE INTACT AND INFUSING D5 1/2 NS @ 70 ML/HR. PATIENT STABLE ON RA, NO S/S OF DISTRESS OR SOB NOTED, BREATHING EVEN AND UNLABORED. MEDICATIONS GIVEN ORDERED, PT NEEDS MET THROUGHOUT SHIFT. SAFETY MEASURES IN PLACE: CALL LIGHT WITHIN REACH, SIDE RAILS UP X 2, BED LOCKED IN LOWEST POSITION, BED ALARM ON. ENDORSED TO DAY SHIFT NURSE FOR CONTINUITY OF CARE
[2022-05-04 08:34] LABS: LYMPHOCYTES % (MANUAL) 27 % (16-48); MONOCYTES % (MANUAL) 13 % (0-11.0); NEUTROPHILS % (MANUAL) 56 (42-76)
[2022-05-04 08:35] LABS: BASOPHILS % (MANUAL) 1 % (0.0-2.0); EOSINOPHILS % (MANUAL) 3 % (0-4)
[2022-05-04 08:38] VITALS: BP 100/69
[2022-05-04] MEDS: PROPRANOLOL HCL 10 MG TABLET PO SCH (08:38)
[2022-05-04] MEDS: PANTOPRAZOLE 40 MG VIAL IV SCH (08:38)
[2022-05-04] MEDS: SPIRONOLACTONE 25 MG TABLET PO SCH (08:38)
[2022-05-04] MEDS: FLUTICASONE/VILANTEROL 1 EACH BLST.W.DEV IH SCH (08:48)
[2022-05-04] MEDS: Magnesium 1GM/D5W 100ML PREMIX 100 ML IV SCH ×2 (08:53→10:51)
[2022-05-04] MEDS: CEFTRIAXONE 1 G in IV D5W 50 ML IV SCH (10:14)
--- NOTE | 2022-05-04 11:15 | NUR ---
RN NOTES AROUND 1100 WHEN I WAS DOING ROUNDS NOTED PATIENT PULLED OUT HIS MID LINE WHILE TRYING TO GO TO THE BATHROOM AND HE HAD FORGOTTEN THAT HE HAS IV ON HIS RIGHT UPPER ARM. NO BLEEDING NOTED. COVERED WITH DRY DRESSING. THE TIP OF THE IV WAS INTACT. CELIA DOMINGUEZ WAS DOING ROUNDS ASKED HIM IF ANY OTHER MIDLINE NEEDED, AND CELIA DOMINGUEZ STATED NO OTHER MID LINE IS NEEDED, HE WILL BE DISCHARGE HOME TODAY.
[2022-05-04] MEDS ORDERED: SUCRALFATE 1 G/10 ML UDC GT SCH (12:00)
[2022-05-04] MEDS ORDERED: HYDR-4303 PO (13:26)
[2022-05-04] MEDS ORDERED: SUCR1ORA4 PO (13:26)
[2022-05-04] MEDS ORDERED: MIRT-121 PO (13:26)
--- NOTE | 2022-05-04 14:48 | NUR ---
BEHAVIORAL GENETICIST NOTES. DISCHARGE PATIENT IN STABLE CONDITION WITH STABLE VITAL SIGNS. NO PAIN NOTED. NO SOB NOTED. NO DISTRESS NOTED. ALL THE DISCHARGE INSTRUCTIONS GIVEN TO THE PATIENT. PATIENT VERBALIZED UNDERSTANDING. ID BAND REMOVED. IV SITE ON THE LEFT AC REMOVED COVERED WITH DRY DRESSING. NO BLEEDING NOTED. REMIND THE PATIENT TO TAKE REMERON FOR ANXIETY /DEPRESSION. AND FOLLOW UP WITH PSYCHIATRIST. TAKE NORCO FOR SEVERE PAIN . DO NOT TAKE TYLENOL WHEN TAKING NORCO. DO NOT DRINK ALCOHOL WHEN TAKING NORCO. CONTINUE CARAFATE BEFORE MEALS. FOLLOW UP WITH COOKER OPERATOR AN OUTPATIENT REGARDING KNEES. WALKER GIVEN UPON DISCHARGE. REMIND TO USE WALKER WHEN AMBULATING. AVOID TAKING ANY MOTRIN/TYLENOL /ADVIL OR OTHER NSAIDS. FOLLOW UP WITH PCP IN A WEEK. IN CASE OF EMERGENCY CALL 911 OR GO TO THE NEAREST EMERGENCY ROOM. PATIENT VERBALIZED UNDERSTANDING. JUSTICE THE ROTATING EQUIPMENT ENGINEER WHEELED THE PATIENT TO THE LOBBY. PATIENT LEFT HOSPITAL WITH HIS FRIEND IN STABLE CONDITION AT 1418. MD AND CHARGE NURSE AWARE OF THE DISCHARGE.
== END 2022-05-04 14:20 | disposition home or self-care (01) | DRG 241 ==
LOC: ER 14:20 → ICU 17:54 → TELE 05-03 14:02 → MED 05-04 08:59
PROVIDERS: ADMIT Nurse Practitioner Acute Care; ATTEND Nurse Practitioner Family
PROC: 30233N1 Transfusion of Nonautologous Red Blood Cells into Peripheral Vein, Percutaneous Approach (ICD-10-PCS; principal; 2022-04-29)
PROC: 05HB33Z Insertion of Infusion Device into Right Basilic Vein, Percutaneous Approach (ICD-10-PCS; 2022-04-30)
PROC: 0DJ08ZZ Inspection of Upper Intestinal Tract, Via Natural or Artificial Opening Endoscopic (ICD-10-PCS; 2022-05-03)
DX: K25.4 Chronic or unspecified gastric ulcer with hemorrhage (principal); N17.0 Acute kidney failure with tubular necrosis; E87.1 Hypo-osmolality and hyponatremia; D69.6 Thrombocytopenia, unspecified; D68.9 Coagulation defect, unspecified; K76.6 Portal hypertension; R18.8 Other ascites; D62 Acute posthemorrhagic anemia; K21.00 Gastro-esophageal reflux disease with esophagitis, without bleeding; E87.6 Hypokalemia; K74.60 Unspecified cirrhosis of liver; Z20.822 Contact with and (suspected) exposure to COVID-19; M10.9 Gout, unspecified; M19.90 Unspecified osteoarthritis, unspecified site; E80.6 Other disorders of bilirubin metabolism; K29.70 Gastritis, unspecified, without bleeding; Z87.891 Personal history of nicotine dependence; F32.9 Major depressive disorder, single episode, unspecified
CPT/HCPCS: 36410; 36415; 70450-TC; 71045-TC; 80048-TC; 80053-TC; 80061-TC; 80076-TC; 82140-TC; 82962-TC; 83540-TC; 83735-TC; 84100-TC; 84443-TC; 84484-TC; 85025-TC; 85027-TC; 85045-TC; 85730-TC; 86850-TC; 93307-TC; 94799-TC; 97116-TC; 97530-TC; A4216; C9113; C9803; G0378; G0480; J0696; J2060; J2270; J2354; J2405; J2704; J3010; J3475; J3480; J3490; J7030; J7040; J7050; J7060; J7120; P9016; P9047

== ENCOUNTER 2022-05-11 23:20 | Inpatient (IN) | payer OTHER ==
[~2022-05-11] VITALS: Ht 175.3 cm; Wt 70.8 kg
[~2022-05-11 23:20] MED LIST changes: +HYDR-4303 PO; +MIRT-121 PO; +SUCR1ORA4 PO
--- NOTE | 2022-05-11 23:27 | NUR ---
PAM FROM HOME, PT A/O X, C/O BRIGHT RED VOMITTING SINCE AM. LAST DRINK ON FRIDAY, PT HAS HISTORY OF CIRRHOSIS.
--- NOTE | 2022-05-11 23:30 | NUR ---
DR. DESAI ON PHONE CALL WITH DR. BENITO DYER
[2022-05-11] MEDS ORDERED: CT SWABBABLE VALVE TRANS SET 1 EA INFUS.SET MC ONE (23:38)
[2022-05-11] MEDS ORDERED: IOHEXOL-300 100 ML VIAL IV ONE (23:38)
[2022-05-11] MEDS ORDERED: IV NS 0.9% 250 ML IV ONE (23:38)
--- NOTE | 2022-05-11 23:47 | NUR ---
BRE COLLECTED AND SENT TO LAB
[2022-05-11] MEDS ORDERED: PANTOPRAZOLE 40 MG VIAL ONE (23:48)
[2022-05-11] MEDS ORDERED: ONDANSETRON HCL/PF 4 MG/2 ML VIAL ONE (23:49)
[2022-05-11 23:52] LABS: BASOPHILS # (AUTO) 0.2 K/uL (0.0-0.2); EOSINOPHILS % (AUTO) 0.1 % (0.0-6.0); HEMATOCRIT 23 % (39-51); HEMOGLOBIN 7.7 g/dL (13.5-17.5); LYMPHOCYTES % (AUTO) 11.6 % (20.0-44.0); MEAN CORPUSCULAR HGB CONC 34 g/dl (31.0-36.0); MEAN CORPUSCULAR VOLUME 99 fL (80-96); MONOCYTES # (AUTO) 0.8 K/uL (0.1-1.30); MONOCYTES % (AUTO) 4.4 % (2.0-12.0); NEUTROPHILS # (AUTO) 14.3 K/uL (1.8-8.9); NEUTROPHILS % (AUTO) 82.9 % (43.0-81.0); PLATELET COUNT (AUTO) 279 K/uL (150-450); RED BLOOD CELL COUNT(AUTO) 2.31 MIL/uL (4.5-6.0); WHITE BLOOD COUNT (AUTO) 17.3 K/uL (4.3-11.0)
[2022-05-12] VITALS (9 sets, daily range): BP systolic 93–120; BP diastolic 46–68
[2022-05-12] MEDS ORDERED: ONDANSETRON HCL/PF - ER 4 MG/2 ML VIAL IV ONE
[2022-05-12] MEDS ORDERED: PANTOPRAZOLE 40 MG VIAL IV ONE
[2022-05-12 00:07] LABS: ALANINE AMINOTRANSFERASE 17 U/L (12-78); ALBUMIN 2.4 g/dL (3.4-5.0); ALKALINE PHOSPHATASE 200 U/L (46-116); ASPARTATE AMINOTRANSFERASE 91 U/L (15-37); BILIRUBIN,DIRECT 1.2 mg/dL (0.0-0.2); BILIRUBIN,TOTAL 3.2 mg/dL (0.2-1.0); CALCIUM, SERUM 7.1 mg/dL (8.5-10.1); CARBON DIOXIDE 26 mmol/L (21-32); CHLORIDE 97 mmol/L (98-107); GLUCOSE 163 mg/dL (74-106); SODIUM SERUM 131 mmol/L (136-145); TOTAL PROTEIN, SERUM 6.6 g/dL (6.4-8.2); UREA NITROGEN, BLOOD 28 mg/dL (7-18)
[2022-05-12 00:09] LABS: POTASSIUM 2.8 mmol/L (3.5-5.1)
--- NOTE | 2022-05-12 00:13 | NUR ---
CRITICAL: POTASSIUM 2.8 , LACTIC ACID 4.4 MD MADE AWARE
[2022-05-12] MEDS ORDERED: POTASSIUM CHLORIDE 20 MEQ TAB.PRT.SR PO ONE ×2 (00:16→00:30)
[2022-05-12] MEDS ORDERED: POTASSIUM CL. PREMIX PERIPHER. 50 ML ONE ×4 (00:17→03:14)
--- NOTE | 2022-05-12 00:24 | NUR ---
PT OUT TO CT
[2022-05-12] MEDS ORDERED: IV NS 0.9% 1,000 ML IV ONE (00:30)
--- NOTE | 2022-05-12 00:38 | NUR ---
PT RETURNED TO ER BED [address]
--- NOTE | 2022-05-12 00:43 | NUR ---
DR DESAI ON THE PHONE WITH CHRISTIANA SHAW AT [facility]
[2022-05-12] MEDS: POTASSIUM CL. PREMIX PERIPHER. 50 ML IV SCH ×6 (00:49→15:34)
--- NOTE | 2022-05-12 01:37 | NUR ---
UPDATED DR SHAW REGARDING LATEST VS AFTER COMPLETING THE BOLUS, HUPOTENSION AND TACHYCARDIA. DR SHAW APPRVED TO KEEP THE PATIENT AND ADMIT AT [place].
[2022-05-12] MEDS ORDERED: CEFTRIAXONE 1GM BAG (ER ONLY) 1 GM/50 ML PIGGYBACK IV ONE (02:00)
[2022-05-12] MEDS ORDERED: CEFTRIAXONE 1 G VIAL ONE (02:04)
[2022-05-12] MEDS ORDERED: CEFTRIAXONE 1GM BAG (ER ONLY) 50 ML IV ONE (02:06)
[2022-05-12 02:39] LABS: LIPASE 49 U/L (73-393)
--- NOTE | 2022-05-12 02:45 | NUR ---
CALLED LAB FOR STATUS ON BLOOD. PER CARGO BRACER NO CLS AVAILABLE WILL BE IN AT 0600
[2022-05-12] MEDS ORDERED: ONDANSETRON HCL/PF 4 MG/2 ML VIAL IVP PRN (03:30)
[2022-05-12] MEDS ORDERED: MAG HYDROX/AL HYDROX/SIMETH 30 ML UDC PO PRN (03:30)
[2022-05-12] MEDS ORDERED: IV NS 0.9% 1,000 ML IV PRN (03:30)
[2022-05-12] MEDS ORDERED: Z GUARD REMEDY 4 OZ OINT TP PRN (03:30)
[2022-05-12] MEDS ORDERED: ZOLPIDEM TARTRATE 5 MG TABLET PO PRN (03:30)
[2022-05-12] MEDS ORDERED: ACETAMINOPHEN 325 MG TABLET PO PRN (03:30)
[2022-05-12] MEDS ORDERED: MAGNESIUM HYDROXIDE 30 ML UDC PO PRN (03:30)
--- NOTE | 2022-05-12 03:40 | NUR ---
callled WILBER to give report, nurse to call back ER
--- NOTE | 2022-05-12 04:10 | NUR ---
REPORT GIVEN TO BARON KING WILBER
--- NOTE | 2022-05-12 05:00 | NUR ---
PT TRANSPORTED VIA ACLS PROTOCAL PT IN STABLE CONDITION
--- NOTE | 2022-05-12 05:10 | NUR ---
coupon collection clerk notes Received Pt from ER nurse FERNANDO Maya. Pt is alert and orientedX4. On room air. No SOB. No S/S of distress noted. IV site at RAC# 22 is clean, intact and flushes easily. Tele monitor showed S. tachy 106. Skin assesment is done and performed. Skin pictures are taken and placed at Pt's chart. Pt's belonging was checked by [employer] Pt to the room and the use of call light. Pt verbalize understanding. Safety precautions is maintained. Bed at low position, brakes locked, side rails upX2, hob elevated, bed alarm is on, urinal at the bedside, and call light is within reach. Will continue to monitor.
--- NOTE | 2022-05-12 05:50 | NUR ---
RN notes Pt is complaining of pain on abdomen and both knees 8/[address] Lockhart ordered morphine 2 mg/iv/q 6hr/prn. Ordered carry out.
[2022-05-12] MEDS: MORPHINE SULFATE INJ 2 MG/ML DISP.SYRIN IV PRN ×2 (06:10→15:46)
--- NOTE | 2022-05-12 06:10 | NUR ---
RN notes Pt is complaining of pain on abdomen and both knees 8/10 on pain scale. Administered morphine 2 mg/iv/prn as ordered for pain per pt' request. Vs is stable. safety precautions is maintained. Will continue to monitor.
--- NOTE | 2022-05-12 06:30 | NUR ---
RN notes Called and spoke with Kamron regarding PRBC. Kamron states "They just got here." Informed to Kamron to have them call primary nurse. Awaiting for the call. Charge nurse is aware and informed.
--- NOTE | 2022-05-12 07:30 | NUR ---
Rn closing notes Pt is sitting in bed comfortably watching TV. Pt is alert and orientedX4. On room air. No SOB. No S/S of distress noted. IV site at RAC # 22 is intact and infusing well NS@ 75ml/hr. Kept Pt clean, dry and comfortable. safety precautions is maintained. bed at low position, brakes locked, side railsupX2, hob elevated, bed alarm is on and call light is within reach. Will endorse to am nurse for [facility].
--- NOTE | 2022-05-12 07:45 | NUR ---
RN notes Called and spoke with [facility] regarding PRBC ordered from . [facility] stated "the blood is not ready yet." Charge nurse FERNANDO Rubio is aware and informed. Primary nurse FERNANDO Monterroso is aware and informed.
--- NOTE | 2022-05-12 08:12 | NUR ---
MS RN OPENING NOTE Patient in bed, awake. A/O x 4, able to make needs known. On room air, breathing evenly and unlabored. No SOB or s/s of distress noted. IV access on RAC #22 infusing NS at 75 ml/hr. On tele monitoring showing SR, HR on the 90's. Patient reports no vomiting this AM, since moved to unit. Kept NPO, per MD order. Safety precautions in place: bed in low, locked position; siderails up x 2; call light within reach. Will continue to monitor.
[2022-05-12] MEDS: PANTOPRAZOLE 40 MG VIAL IV SCH ×2 (08:44→20:31)
[2022-05-12 08:59] LABS: BASOPHILS # (AUTO) 0.1 K/uL (0.0-0.2); BASOPHILS % (AUTO) 0.8 % (0.0-2.0); EOSINOPHILS % (AUTO) 0.2 % (0.0-6.0); LYMPHOCYTES # (AUTO) 2.8 K/uL (0.8-4.8); LYMPHOCYTES % (AUTO) 15.8 % (20.0-44.0); MEAN CORPUSCULAR HGB CONC 33 g/dl (31.0-36.0); MEAN CORPUSCULAR VOLUME 99 fL (80-96); MONOCYTES # (AUTO) 0.9 K/uL (0.1-1.30); MONOCYTES % (AUTO) 5.2 % (2.0-12.0); PLATELET COUNT (AUTO) 191 K/uL (150-450)
[2022-05-12 09:02] LABS: CALCIUM, SERUM 6.4 mg/dL (8.5-10.1); CREATININE 0.9 mg/dL (0.6-1.3); POTASSIUM 3.4 mmol/L (3.5-5.1)
[2022-05-12 09:07] LABS: RED BLOOD CELL COUNT(AUTO) 1.92 MIL/uL (4.5-6.0)
[2022-05-12 09:08] LABS: HEMATOCRIT 19 % (39-51); HEMOGLOBIN 6.3 g/dL (13.5-17.5)
--- NOTE | 2022-05-12 09:10 | NUR ---
RN NOTE Received call from [facility] from lab, critical value Hgb 6.3, Hct 19, patient has active order for PRBC transfusion. Followed up blood, per [facility] blood is ready for waste picker in 10 minutes.
--- NOTE | 2022-05-12 09:55 | NUR ---
RN NOTE Active order for blood transfusion on file. Consent form in chart. Picked up blood at the blood bank. VS taken as follows: BP 105/46, HR 92, RR 18, Temp 98.6, SPO2 100%. Verified by 2 RNs, started blood transfusion. Will continue to monitor.
--- NOTE | 2022-05-12 10:10 | NUR ---
RN NOTE Blood transfusion on going. Patient remains stable. No transfusion reactions noted. VS taken as follows: BP 106/64, HR 97, RR 19, Temp 99.3, SPO2 98%. Will continue to monitor.
--- NOTE | 2022-05-12 11:10 | NUR ---
RN NOTE Blood transfusion on going. Patient remains stable. No transfusion reactions noted. VS taken as follows: BP 93/58, HR 91, RR 18, Temp 99.0, SPO2 100%. Will continue to monitor.
--- NOTE | 2022-05-12 11:21 | NUR ---
RN NOTE Patient is on NPO, per Dr. Eliseo Borjas, okay to give ice chips.
[2022-05-12] MEDS ORDERED: POTASSIUM CL. PREMIX PERIPHER. 50 ML IV SCH (12:00)
--- NOTE | 2022-05-12 13:26 | NUR ---
RN NOTE 1 unit PRBC transfusion ended. Patient remains stable, no transfusion reactions noted. VS taken as follows: BP 104/65, HR 82, RR 18, Temp 98.7, SPO2 98% on room air. Will continue to monitor.
[2022-05-12 13:31] LABS: BAND % (MANUAL) 7 % (0.0-5.0); LYMPHOCYTES % (MANUAL) 17 % (16-48); MONOCYTES % (MANUAL) 5 % (0-11.0); NEUTROPHILS % (MANUAL) 71 (42-76)
--- NOTE | 2022-05-12 15:53 | NUR ---
RN NOTE Patient complained of pain on abdomen and both knees, 9/10 on pain scale. Verified with Dr. Eliseo Borjas if Morphine is okay to give with BP 103/64, Dr. Eliseo Borjas okayed to give Morphine 2mg, PRN. Will continue to monitor.
--- NOTE | 2022-05-12 19:11 | NUR ---
MS RN CLOSING NOTE Patient in bed, resting. A/O x 4, able to make needs known. Stable on room air, breathing evenly and unlabored. No SOB or s/s of distress noted. IV access on RAC #22 infusing NS at 75 ml/hr. On tele monitoring showing SR, HR on the 80's. No nausea and vomiting noted throughout shift. Kept NPO, per MD order. Due meds given. All needs attended to. Safety precautions maintained: bed in low, locked position; siderails up x 2; call light within reach. Will endorse to night custodian nurse for [facility].
--- NOTE | 2022-05-12 19:45 | NUR ---
SALES ACCOUNT COORDINATOR OPENING NOTES PATIENT RECEIVED RESTING IN BED COMFORTABLY; A/OX4, BREATHING EVEN AND UNLABORED; TOLERATING ROOM AIR WELL; ABLE TO MAKE NEEDS KNOWN; TELE MONITOR READS SINUS RHYTHM 80S - 90S; PER AM SHIFT PATIENT TO BE KEPT NPO; WILL FOLLOW MD ORDER; RAC #22 INTACT AND PATENT, TOLERATING IVF WELL; SAFETY PRECAUTIONS IMPLEMENTED; BED LOCKED IN LOW POSITION; SIDE RAILSX2, CALL LIGHT WITHIN REACH; WILL CONT PLAN OF CARE
--- NOTE | 2022-05-12 20:13 | NUR ---
RN CCU NOTES DR. DELAROSA AT PATIENT BEDSIDE, PER ISAURA CHANGE MORPHINE FROM 2MG TO 4MG IVP Q6HR. DR DELAROSA VERBALIZED OK TO START FIRST DOSE OF PAIN MED NOW WITH 97/86 BP; ORDERS RECEIVED AND CARRIED OUT; AWAITING PHARMACY TO VERIFY MEDICATION;
[2022-05-12] MEDS ORDERED: ALBUTEROL FS 2.5 MG/3 ML VIAL.NEB NEB PRN (20:30)
[2022-05-12] MEDS ORDERED: MORPHINE SULFATE INJ 4 MG/ML DISP.SYRIN IM PRN (20:30)
[2022-05-12] MEDS ORDERED: IV NS 0.9% 500 ML IV ONE (20:30)
[2022-05-12] MEDS: MORPHINE SULFATE INJ 4 MG/ML DISP.SYRIN IVP PRN (20:35)
[2022-05-12 21:19] LABS: HEMATOCRIT 22 % (39-51); HEMOGLOBIN 7.3 g/dL (13.5-17.5); MEAN CORPUSCULAR HGB CONC 34 g/dl (31.0-36.0); MEAN CORPUSCULAR VOLUME 96 fL (80-96); PLATELET COUNT (AUTO) 154 K/uL (150-450); RED BLOOD CELL COUNT(AUTO) 2.25 MIL/uL (4.5-6.0); WHITE BLOOD COUNT (AUTO) 10.3 K/uL (4.3-11.0)
[2022-05-12] MEDS: SUCRALFATE 1 G/10 ML UDC PO SCH (21:32)
[2022-05-12] MEDS: CEFTRIAXONE 1 G in IV D5W 50 ML IV SCH (21:32)
[2022-05-12] MEDS: MIRTAZAPINE 15 MG TABLET PO SCH (21:33)
--- NOTE | 2022-05-12 21:48 | NUR ---
DRILL PRESS OPERATOR NUMERICAL CONTROL CLOSING NOTES REPORT GIVEN TO FENRANDO MUELLER FOR [facility]
--- NOTE | 2022-05-12 21:58 | NUR ---
RN NOTE RECEIVED REPORT FROM PAM KING. WILL CONTINUE CARE.
--- NOTE | 2022-05-12 22:58 | NUR ---
ACCOUNTS RECEIVABLE CLERK OPENING NOTE PT RECEIVED IN BED, AWAKE AND WATCHING TV, A&O X4, CALM, COOPERATIVE. PT ON RA WITH O2SAT OF 98%; NO S/S OF RESP DISTRESS, NO SOB OR COUGH, NON-LABORED AND EQUAL BREATHING. PT ATTACHED TO EXTERNAL MONITOR, SR WITH HR OF 88. IV ACCESS ON RAC 22G, INTACT AND PATENT, FLUSHES EASILY WITH NO RESISTANCE. PT REPORTS HIS PAIN IS NOT BAD RIGHT NOW HE WAS GIVEN MORPHINE 2 HRS AGO. BED IN LOWEST POSITION, CALL LIGHT WITHIN REACH, SIDE RAILS UP X2. WILL CONTINUE TO MONITOR THROUGHOUT THE NIGHT.
[2022-05-12] MEDS: IV LR 1000 ML 1,000 ML IV PRN (23:22)
[2022-05-13] VITALS (13 sets, daily range): BP systolic 93–125; BP diastolic 57–77
[2022-05-13] MEDS: MORPHINE SULFATE INJ 4 MG/ML DISP.SYRIN IVP PRN ×4 (00:32→16:18)
--- NOTE | 2022-05-13 00:32 | NUR ---
RN NOTE PT COMPLAINS OF AN 8/10 ABDOMINAL PAIN. PT ADMINISTERED MORPHINE 4 MG. WILL MONITOR FOR EFFECTIVENESS.
[2022-05-13] MEDS ORDERED: CEFTRIAXONE 1 G in IV D5W 50 ML IV SCH (02:00)
[2022-05-13 02:43] LABS: MEAN CORPUSCULAR HGB CONC 34 g/dl (31.0-36.0); MEAN CORPUSCULAR VOLUME 95 fL (80-96); PLATELET COUNT (AUTO) 134 K/uL (150-450); RED BLOOD CELL COUNT(AUTO) 2.06 MIL/uL (4.5-6.0); WHITE BLOOD COUNT (AUTO) 7.1 K/uL (4.3-11.0)
[2022-05-13 03:08] LABS: HEMATOCRIT 20 % (39-51); HEMOGLOBIN 6.7 g/dL (13.5-17.5)
--- NOTE | 2022-05-13 03:08 | NUR ---
RN NOTE RECEIVED CRITICAL FROM LAB. HGB IS 6.7. INFORMED DR. LILLY AND ORDERED 1 UNIT OF PRBC. ORDER OBTAINED AND CARRIED OUT.
--- NOTE | 2022-05-13 04:33 | NUR ---
RN NOTE PT COMPLAINS OF 9/10 ABDOMINAL PAIN THAT'S DESCRIBED ACHING. PT ADMINISTERED MORPHINE 4 MG. WILL MONITOR FOR EFFECTIVENESS.
--- NOTE | 2022-05-13 05:38 | NUR ---
RN NOTE PRE-TRANSFUSION VS ARE FOLLOWS: BP 99/65, HR 84, TEMP 98.4, O2SAT 99%, RR 20. TRANSFUSION BEGAN, WILL CLOSELY MONITOR PT
[2022-05-13 05:54] LABS: BASOPHILS # (AUTO) 0.1 K/uL (0.0-0.2); BASOPHILS % (AUTO) 1.8 % (0.0-2.0); EOSINOPHILS % (AUTO) 3.3 % (0.0-6.0); LYMPHOCYTES # (AUTO) 1.4 K/uL (0.8-4.8); LYMPHOCYTES % (AUTO) 22.2 % (20.0-44.0); MEAN CORPUSCULAR HGB CONC 35 g/dl (31.0-36.0); MEAN CORPUSCULAR VOLUME 95 fL (80-96); MONOCYTES # (AUTO) 0.2 K/uL (0.1-1.30); MONOCYTES % (AUTO) 3.7 % (2.0-12.0); NEUTROPHILS # (AUTO) 4.3 K/uL (1.8-8.9); PLATELET COUNT (AUTO) 136 K/uL (150-450); RED BLOOD CELL COUNT(AUTO) 2.12 MIL/uL (4.5-6.0); WHITE BLOOD COUNT (AUTO) 6.3 K/uL (4.3-11.0)
--- NOTE | 2022-05-13 06:27 | NUR ---
RN NOTE 1ST 15-MINUTE VS ARE FOLLOWS: BP 118/77, HR 85, TEMP 97.8, O2SAT 100%, RR 20
--- NOTE | 2022-05-13 06:28 | NUR ---
RN NOTE 2ND 30-MINUTE VS ARE FOLLOWS: BP 114/65, HR 90, TEMP 97.9, O2SAT 99%, RR 20. Addendum: 05/13/22 at 0629 by PRINCESS SOLER RN 2ND 15-MINUTE VS
--- NOTE | 2022-05-13 06:49 | NUR ---
RN NOTE 30-MINUTE VS ARE FOLLOWS: BP 96/66, HR 86, TEMP 97.9, O2SAT 100%, RR 18
--- NOTE | 2022-05-13 07:06 | NUR ---
REGISTRATION REPRESENTATIVE CLOSING NOTE PT REMAINS IN BED, AWAKE, A&O X4, SLEPT WELL THROUGHOUT THE NIGHT. PT REMAINS ON RA WITH O2SAT RANGING FROM 98%-99% WITH NO S/S OF RESP DISTRESS, NO SOB OR COUGH, NON-LABORED AND EQUAL BREATHING. ATTACHED TO EXTERNAL MONITOR SR WITH HR RANGING FROM 84-88. RAC 22G INTACT AND PATENT, FLUSHES EASILY WITH NO RESISTANCE. CURRENTLY HAS 1 UNIT OF PRBC RUNNING AT 120 ML/HR. OF RIGHT NOW, PT IS TOLERATING BLOOD TRANSFUSION WELL WITH NO COMPLAINTS OF CHEST PAIN, SOB, PRURITUS, ETC. ALL DUE MEDS ADMINISTERED DURING THE NIGHT. BED IN LOWEST POSITION, CALL LIGHT WITHIN REACH, SIDE RAILS UP X2. WILL ENDORSE TO DAYSHIFT NURSE TO CONTINUE CARE.
[2022-05-13] MEDS: SUCRALFATE 1 G/10 ML UDC PO SCH ×5 (07:30→21:16)
[2022-05-13] MEDS ORDERED: PANTOPRAZOLE 40 MG TABLET.DR PO SCH (07:30)
[2022-05-13 07:36] LABS: ALBUMIN 2.1 g/dL (3.4-5.0); BILIRUBIN,TOTAL 1.6 mg/dL (0.2-1.0); CALCIUM, SERUM 6.8 mg/dL (8.5-10.1); CREATININE 0.7 mg/dL (0.6-1.3); PHOSPHORUS 1.8 mg/dL (2.5-4.9); POTASSIUM 2.9 mmol/L (3.5-5.1); TOTAL PROTEIN, SERUM 5.8 g/dL (6.4-8.2)
--- NOTE | 2022-05-13 07:40 | NUR ---
RN OPENING NOTE PT RECEIVED IN BED, AWAKE AND WATCHING TV, A&O X4, CALM, COOPERATIVE. PT ON RA WITH O2SAT OF 98%-99%; NO S/S OF RESP DISTRESS, NO SOB OR COUGH, NON-LABORED AND EQUAL BREATHING. PT ATTACHED TO EXTERNAL MONITOR, SR WITH HR OF 88. IV ACCESS ON RAC 22G, INTACT AND PATENT, UNDERGOING 120MLS/HR WITH BLOOD TRANSFUSION AT THIS TIME WITH NO PAIN AT THIS TIME. BED IN LOWEST POSITION, CALL LIGHT WITHIN REACH, SIDE RAILS UP X2. WILL CONTINUE TO MONITOR THROUGHOUT SHIFT.
[2022-05-13 07:47] LABS: MAGNESIUM 0.9 mg/dL (1.8-2.4)
--- NOTE | 2022-05-13 08:04 | NUR ---
RN NOTE MG LEVEL IS 0.9, NOTIFIED DR LEANDRA DELAROSA.
[2022-05-13 08:17] LABS: HEMATOCRIT 20 % (39-51)
[2022-05-13] MEDS: SPIRONOLACTONE 25 MG TABLET PO SCH ×2 (08:44→17:01)
[2022-05-13] MEDS: PANTOPRAZOLE 40 MG VIAL IV SCH ×2 (08:44→21:16)
[2022-05-13] MEDS: PROPRANOLOL HCL 10 MG TABLET PO SCH ×2 (08:45→21:00)
--- NOTE | 2022-05-13 08:50 | NUR ---
RN NOTE PT HAD SEIZURE ACTIVITY, WAS RUNNING 1 UNIT OF RBC SINCE 527. NOTIFIED CHARGE NURSE, AND DR LEANDRA DELAROSA.
--- NOTE | 2022-05-13 08:50 | NUR ---
RN NOTES BLOOD TRANSFUSION COMPLETE. LAST VITALS SIGNS: T: ORAL 98.0; PULSE: 89; RR: 20; BP 111/69.
[2022-05-13] MEDS ORDERED: FLUTICASONE 110MCG 1 EA INHALER IH SCH (09:00)
[2022-05-13] MEDS ORDERED: POTASSIUM CHLORIDE 20 MEQ TAB.PRT.SR PO SCH (10:00)
[2022-05-13] MEDS ORDERED: K PHOS NEUTRAL 250 MG TABLET PO ONE (10:00)
[2022-05-13 11:10] LABS: BASOPHILS # (AUTO) 0.1 K/uL (0.0-0.2); BASOPHILS % (AUTO) 0.7 % (0.0-2.0); EOSINOPHILS % (AUTO) 3.1 % (0.0-6.0); HEMATOCRIT 28 % (39-51); HEMOGLOBIN 9.5 g/dL (13.5-17.5); LYMPHOCYTES # (AUTO) 1.1 K/uL (0.8-4.8); LYMPHOCYTES % (AUTO) 11.9 % (20.0-44.0); MEAN CORPUSCULAR HGB CONC 34 g/dl (31.0-36.0); MEAN CORPUSCULAR VOLUME 94 fL (80-96); MONOCYTES # (AUTO) 0.4 K/uL (0.1-1.30); MONOCYTES % (AUTO) 4.9 % (2.0-12.0); NEUTROPHILS # (AUTO) 7.2 K/uL (1.8-8.9); NEUTROPHILS % (AUTO) 79.4 % (43.0-81.0); PLATELET COUNT (AUTO) 137 K/uL (150-450); WHITE BLOOD COUNT (AUTO) 9.1 K/uL (4.3-11.0)
[2022-05-13 14:13] LABS: HEMATOCRIT 24 % (39-51); HEMOGLOBIN 8.1 g/dL (13.5-17.5); MEAN CORPUSCULAR HGB CONC 34 g/dl (31.0-36.0); MEAN CORPUSCULAR VOLUME 93 fL (80-96); PLATELET COUNT (AUTO) 139 K/uL (150-450); RED BLOOD CELL COUNT(AUTO) 2.58 MIL/uL (4.5-6.0)
[2022-05-13] MEDS: BUDESONIDE RESPULE INH 0.5 MG/2 ML AMPUL.NEB NEB SCH (15:00)
[2022-05-13] MEDS: IV LR 1000 ML 1,000 ML IV PRN (16:33)
[2022-05-13] MEDS: Magnesium 1GM/D5W 100ML PREMIX 100 ML IV SCH ×4 (17:01→21:10)
[2022-05-13] MEDS ORDERED: LORAZEPAM INJ 2 MG/ML VIAL IV PRN (17:30)
--- NOTE | 2022-05-13 18:55 | NUR ---
RN CLOSING NOTE PT REMAINS IN BED A&O X4 ON RA WITH O2SAT AT 100% WITH NO S/S OF RESP DISTRESS, NO SOB OR COUGH. NON-LABORED AND EQUAL BREATHING. ATTACHED TO EXTERNAL MONITOR SR WITH HR RANGING FROM 88-92. DELL MIDLINE INTACT AND PATENT, FLUSHES EASILY WITH NO RESISTANCE. CURRENTLY HAS 2/4 BAG OF IVPB MAGNESIUM @ 100 ML/HR OF RIGHT NOW.ALL DUE MEDS ADMINISTERED DURING THE NIGHT. BED IN LOWEST POSITION, CALL LIGHT WITHIN REACH, SIDE RAILS UP X2. WILL ENDORSE TO HOUSING OFFICER NURSE TO CONTINUE CARE
--- NOTE | 2022-05-13 20:00 | NUR ---
CLIN NURSE SPEC NOTE PT IN BED AWAKE. A/O X 4, NO SOB, NO DISTRESS OR DISCOMFORT NOTED. DENIES PAIN AT THIS TIME. ON TELE MONITOR SR 79. PT REMAIN ON CLEAR LIQUIDS. DELL MIDLINE. INFUSING LR @100 ML/HR, NO S/S OF INFILTRATION NOTED. ALSO HUNGED MAG 1 G IVPB AND INFUSE AT 100 ML/HR. ALL NEEDS ATTENDED. VSS. CONTINUE TO MONITOR HIM.
[2022-05-13] MEDS: CEFTRIAXONE 1 G in IV D5W 50 ML IV SCH (21:16)
[2022-05-13] MEDS: MIRTAZAPINE 15 MG TABLET PO SCH (21:16)
[2022-05-14] VITALS: BP 99/62
[2022-05-14] MEDS: MORPHINE SULFATE INJ 4 MG/ML DISP.SYRIN IVP PRN ×4 (03:15→18:09)
[2022-05-14 04:00] VITALS: BP 105/70
[2022-05-14 06:38] LABS: BASOPHILS # (AUTO) 0.1 K/uL (0.0-0.2); BASOPHILS % (AUTO) 1.1 % (0.0-2.0); EOSINOPHILS % (AUTO) 3.8 % (0.0-6.0); HEMATOCRIT 26 % (39-51); HEMOGLOBIN 8.7 g/dL (13.5-17.5); LYMPHOCYTES % (AUTO) 16.4 % (20.0-44.0); MEAN CORPUSCULAR HGB CONC 34 g/dl (31.0-36.0); MEAN CORPUSCULAR VOLUME 96 fL (80-96); MONOCYTES # (AUTO) 0.2 K/uL (0.1-1.30); MONOCYTES % (AUTO) 3.8 % (2.0-12.0); NEUTROPHILS # (AUTO) 4.6 K/uL (1.8-8.9); NEUTROPHILS % (AUTO) 74.9 % (43.0-81.0); PLATELET COUNT (AUTO) 118 K/uL (150-450); WHITE BLOOD COUNT (AUTO) 6.1 K/uL (4.3-11.0)
[2022-05-14 06:56] LABS: CALCIUM, SERUM 7.2 mg/dL (8.5-10.1); CREATININE 0.7 mg/dL (0.6-1.3); PHOSPHORUS 1.9 mg/dL (2.5-4.9); POTASSIUM 3.7 mmol/L (3.5-5.1)
--- NOTE | 2022-05-14 07:00 | NUR ---
VACUUM FURNACE OPERATOR NOTE PT IN BED AWAKE. NO DISTRESS OR DISCOMFORT NOTED. DENIES PAIN AT THIS TIME. SIDE RAILS UP X 2 AND CALL LIGHT WITHIN REACH. WILL ENDORSE TO DAY SHIFT NURSE FOR CONTINUE TO CARE.
--- NOTE | 2022-05-14 07:44 | NUR ---
CHAIR UPHOLSTERER NOTE PATIENT IN BED, ALERT ORIENTED, ON TELE MONIOTR SR HR 92 AT THIS TIME, DELL MID LINE IN PLACE , ON IVF ORDERED, NO SOB NOTED AT THIS TIME, BED IN LOWEST AND LOCKED POSITION, WILL CONT TO [place]
[2022-05-14] MEDS: SUCRALFATE 1 G/10 ML UDC PO SCH ×4 (07:58→21:55)
[2022-05-14 08:00] VITALS: BP 147/63
[2022-05-14] MEDS: IV LR 1000 ML 1,000 ML IV PRN ×2 (08:07→18:15)
[2022-05-14] MEDS: PANTOPRAZOLE 40 MG VIAL IV SCH (08:09)
[2022-05-14] MEDS: PROPRANOLOL HCL 10 MG TABLET PO SCH ×2 (08:12→21:55)
[2022-05-14] MEDS: SPIRONOLACTONE 25 MG TABLET PO SCH ×2 (08:13→16:29)
[2022-05-14] MEDS: BUDESONIDE RESPULE INH 0.5 MG/2 ML AMPUL.NEB NEB SCH ×2 (08:26→15:29)
--- NOTE | 2022-05-14 08:30 | NUR ---
WOUND CARE CONSULT: PT PRESENTS WITH DISCOLORATION TO ARMS WITH SKIN TEAR TO LEFT ARM AND RASH TO BUTTOCKS AND PERINEUM, PRESENT ON ADMISSION. SOME INCONTINENCE OF LOOSE BLACK STOOL NOTED. RECOMMENDATIONS MADE FOR SKIN PROTECTION. DISCUSSED WITH NURSING STAFF. MD IN AGREEMENT WITH PLAN OF CARE.
[2022-05-14] MEDS: CLOTRIMAZOLE 1% 15 GM TUBE TP SCH ×2 (09:34→16:30)
--- NOTE | 2022-05-14 11:20 | NUR ---
television maintenance man note dr vu at bedside notified that dr mason gi doctor not seen patient yet stated to call him again , called and left a message, aware that patient still wheezing upon auscultation ,on breathing tx ,we await dr mason to come
[2022-05-14 12:00] VITALS: BP 109/66
[2022-05-14] MEDS ORDERED: K PHOS NEUTRAL 250 MG TABLET PO ONE (12:00)
--- NOTE | 2022-05-14 12:15 | NUR ---
inbound telemarketer note c\o general pain esodically both knees ,morphine 4 mg ivp given. bp 109/66 saturation 100%, will monitor Addendum: 05/14/22 at 1410 by QUINTEN THOMPSON RN ESPECIALLY CORRECTION
--- NOTE | 2022-05-14 15:15 | NUR ---
telehealth case manager note per dr horace majano to order pt\ot eval order carried out
[2022-05-14 16:00] VITALS: BP 108/68
--- NOTE | 2022-05-14 17:01 | NUR ---
telescope operator note perv dr collazo ok to start full liquid diet , aware that dr marlon rey came to see patient today ,
[2022-05-14 18:32] LABS: HEMOGLOBIN 8.2 g/dL (13.5-17.5)
--- NOTE | 2022-05-14 18:38 | NUR ---
WASTEWATER ANALYST NOTE HAVING FULL LIQUID DIET MORPHINE 4 MG IVP GIVEN, BP105/78 SATURATION 100% ,ALL NEEDS ATTENDED
--- NOTE | 2022-05-14 19:52 | NUR ---
RN OPENING NOTES: RECEIVED PT IN BED, AWAKE, A/O X4 AND VERBALLY RESPONSIVE. ON ROOM AIR AND PT TOLERATED WELL. BREATHING EVEN AND UNLABORED. IV ACCESS ON DELL MIDLINE INTACT AND PATENT. RUNNING LR AT 100CC/HR. NO C/O PAIN OR DISCOMFORT. NO ACUTE DISTRESS. ALL SAFETY MEASURES IN PLACE. BED IN LOWEST POSITION AND LOCKED, SIDE RAILS UP X2. PLACE CALL LIGHT WITH IN REACH. WILL CONTINUE TO MONITOR
[2022-05-14 20:00] VITALS: BP 106/69
[2022-05-14] MEDS: CEFTRIAXONE 1 G in IV D5W 50 ML IV SCH (20:33)
[2022-05-14] MEDS: MIRTAZAPINE 15 MG TABLET PO SCH (21:55)
[2022-05-14] MEDS: PANTOPRAZOLE 40 MG TABLET.DR PO SCH (21:56)
[2022-05-15] VITALS: BP 99/62
[2022-05-15 04:00] VITALS: BP 91/53
[2022-05-15] MEDS: IV LR 1000 ML 1,000 ML IV PRN (05:57)
--- NOTE | 2022-05-15 06:52 | NUR ---
RN CLOSING NOTES: PT IN BED, AWAKE, A/O X4 AND VERBALLY RESPONSIVE. ON ROOM AIR AND PT TOLERATED WELL. O2 SAT 96%. BREATHING EVEN AND UNLABORED. IV ACCESS ON LFA#24G INTACT AND PATENT. NO S/S OF INFILTRATIONS. RUNNING LR AT 100CC/HR. PT HAD SEVERAL EPISODES OF REMOVING THE IV TUBING FROM THE CONNECTION AND THREW ON THE FLOOR. STRONGLY REFUSED TO BE CHANGE AND BED BATH. MENTIONED HE WANTS TO GO HOME [facility]. EXPLAINED THE RISKS AND BENEFITS BUT STILL REFUSED. NO C/O PAIN OR DISCOMFORT. NO ACUTE DISTRESS. ALL DUE MEDS GIVEN ORDERED. ALL SAFETY MEASURES IN PLACE. BED IN LOWEST POSITION AND LOCKED, SIDE RAILS UP X2. PLACE CALL LIGHT WITH IN REACH. WILL ENDORSE TO MORNING SHIFT NURSE.
[2022-05-15 07:44] LABS: BASOPHILS # (AUTO) 0.1 K/uL (0.0-0.2); BASOPHILS % (AUTO) 1.1 % (0.0-2.0); EOSINOPHILS % (AUTO) 2.6 % (0.0-6.0); HEMATOCRIT 25 % (39-51); HEMOGLOBIN 8.3 g/dL (13.5-17.5); LYMPHOCYTES # (AUTO) 0.7 K/uL (0.8-4.8); LYMPHOCYTES % (AUTO) 15.1 % (20.0-44.0); MEAN CORPUSCULAR HGB CONC 34 g/dl (31.0-36.0); MEAN CORPUSCULAR VOLUME 95 fL (80-96); MONOCYTES # (AUTO) 0.2 K/uL (0.1-1.30); MONOCYTES % (AUTO) 4.6 % (2.0-12.0); NEUTROPHILS # (AUTO) 3.5 K/uL (1.8-8.9); NEUTROPHILS % (AUTO) 76.6 % (43.0-81.0); PLATELET COUNT (AUTO) 127 K/uL (150-450); RED BLOOD CELL COUNT(AUTO) 2.58 MIL/uL (4.5-6.0); WHITE BLOOD COUNT (AUTO) 4.5 K/uL (4.3-11.0)
--- NOTE | 2022-05-15 07:50 | NUR ---
RN OPENING NOTE PATIENT RECEIVED IN BED, AO X 4, ABLE TO RESPONDS ALL STIMULI. IN NO ACUTE DISTRESS NOTED. RESPIRATORY EVEN AND UNLABORED ON ROOM AIR. SKIN IS WARM TO TOUCH, KEEP CLEAN/DRY. KEPT ELEVATED HOB FOR ENSURE AIRWAY AND ASPIRATION PRECAUTION, ALSO LOWEST POSITION OF THE BED, S/R UP X 2, BED ALARM IS ON AT ALL THE TIMES. ALL SAFETY PRECAUTION APPLIED. CALL LIGHT WITHIN REACH, WILL CONTINUE TO MONITOR.
[2022-05-15 08:00] VITALS: BP 129/69
[2022-05-15 08:01] LABS: CALCIUM, SERUM 7.6 mg/dL (8.5-10.1); CREATININE 0.7 mg/dL (0.6-1.3); MAGNESIUM 1.4 mg/dL (1.8-2.4); POTASSIUM 3.5 mmol/L (3.5-5.1)
[2022-05-15] MEDS: CLOTRIMAZOLE 1% 15 GM TUBE TP SCH (08:11)
[2022-05-15] MEDS: PANTOPRAZOLE 40 MG TABLET.DR PO SCH (08:12)
[2022-05-15] MEDS: SUCRALFATE 1 G/10 ML UDC PO SCH (08:12)
[2022-05-15 08:18] VITALS: BP 129/69
[2022-05-15] MEDS: SPIRONOLACTONE 25 MG TABLET PO SCH (08:18)
[2022-05-15] MEDS: PROPRANOLOL HCL 10 MG TABLET PO SCH (08:18)
--- NOTE | 2022-05-15 08:20 | NUR ---
PATIENT , [id number], SINGED AMA AND LEFT FACILITY. PATIENT UNDERSTANDING THE RISK AND CONSEQUENCES INVOLVED IN LEAVING THE HOSPITAL AT THIS TIME. REMOVED IV LINE BEFORE PATIENT LEAVE AND INFORMED MD. REGARDING ABOVE. INCIDENT REPORT DONE.
--- NOTE | 2022-05-15 08:25 | NUR ---
patient signed ama he cannot wait for rounding md to discharge him due personal reason,dr. jiang notified,nursing sup notified.explained risk of leaving [facility] and instructed pt. to go back to [facility] if symptoms recur.
== END 2022-05-15 11:42 | disposition left against medical advice (07) | DRG 241 ==
LOC: ER 23:22 → TELE1 05-12 04:03
PROVIDERS: ADMIT Nurse Practitioner Acute Care; ATTEND Internal Medicine
PROC: 30233N1 Transfusion of Nonautologous Red Blood Cells into Peripheral Vein, Percutaneous Approach (ICD-10-PCS; principal; 2022-05-12)
PROC: 05H933Z Insertion of Infusion Device into Right Brachial Vein, Percutaneous Approach (ICD-10-PCS; 2022-05-13)
DX: K25.4 Chronic or unspecified gastric ulcer with hemorrhage (principal); D68.9 Coagulation defect, unspecified; E87.2 Acidosis; E44.0 Moderate protein-calorie malnutrition; E87.1 Hypo-osmolality and hyponatremia; K20.91 Esophagitis, unspecified with bleeding; K74.60 Unspecified cirrhosis of liver; K70.9 Alcoholic liver disease, unspecified; D62 Acute posthemorrhagic anemia; Z20.822 Contact with and (suspected) exposure to COVID-19; I10 Essential (primary) hypertension; M10.9 Gout, unspecified; Z79.51 Long term (current) use of inhaled steroids; Z79.899 Other long term (current) drug therapy; D72.829 Elevated white blood cell count, unspecified; J44.9 Chronic obstructive pulmonary disease, unspecified; E87.6 Hypokalemia; E80.6 Other disorders of bilirubin metabolism; K57.90 Diverticulosis of intestine, part unspecified, without perforation or abscess without bleeding; K76.0 Fatty (change of) liver, not elsewhere classified; Z87.891 Personal history of nicotine dependence
CPT/HCPCS: 36410; 36415; 71045-TC; 80048-TC; 80076-TC; 83605-TC; 83690-TC; 83735-TC; 84100-TC; 85025-TC; 85027-TC; 85730-TC; 86850-TC; C9113; C9803; G0378; J0696; J2060; J2270; J2405; J3475; J3480; J7030; J7040; J7050; J7060; J7120; P9016; Q9967